=== PATIENT | male | born 1940 | race African-American/Black ===

== ENCOUNTER 2018-10-15 00:11 | Inpatient (IN) | payer OTHER, MEDICAID ==
[~2018-10-15] VITALS: Ht 167.6 cm; Wt 106.8 kg
[2018-10-15] VITALS (8 sets, daily range): BP systolic 108–148; BP diastolic 53–85
[2018-10-15] MEDS: BUDESONIDE 0.5MG/2ML NEB HHN SCH
[2018-10-15] MEDS: IPRATROPIUM/ALBUTEROL 0.5-3(2.5)MG/3ML NEB HHN SCH
[~2018-10-15 00:11] MED LIST: ALLO100T PO; BACL-141 PO; GLIP5TAB12 PO; HYDR12.529 PO; IBUP-2271 MT; SIMV5TAB58 PO
[2018-10-15] MEDS ORDERED: ALBUTEROL (0.083%) 2.5MG/3ML NEB HHN STA (00:47)
[2018-10-15] MEDS ORDERED: METHYLPREDNISOLONE SOD SUCC 125 MG/2 ML VIAL IV STA (00:47)
[2018-10-15] MEDS ORDERED: IPRATROPIUM BROMIDE (0.02%) 0.5MG/2.5ML NEB HHN STA (00:47)
[2018-10-15] MEDS ORDERED: DILTIAZEM HCL 5MG/ML 5ML VIAL IV ONE (01:00)
[2018-10-15 01:24] LABS: BASOPHILS % 0.7 % (0.0-2.0); HEMATOCRIT. 42.8 % (42.0-52.0); HEMOGLOBIN. 14.1 g/dL (14.0-18.0); LYMPHOCYTES % 7.6 % (20.0-50.0); MEAN CORPUSCULAR HEMOGLOBIN 29.5 pg (28.0-32.0); MEAN CORPUSCULAR VOLUME 89.7 fL (80.0-94.0); MEAN PLATELET VOLUME 10.8 fl (7.4-10.4); MONOCYTES % 7.7 % (2.0-8.0); PLATELET 210 x1000/uL (130-400); RED BLOOD CELL COUNT 4.77 mill/uL (4.7-6.1); RED CELL DISTRIBUTION WIDTH 15.6 % (11.6-14.6)
[2018-10-15 01:25] LABS: CHLORIDE 111 mEq/L (98-107)
[2018-10-15] MEDS ORDERED: ASPIRIN 81MG TABLET PO ONE (02:00)
[2018-10-15] MEDS ORDERED: DEXTROSE 50% WATER 50ML SYRINGE IV PRN (05:15)
[2018-10-15 07:38] LABS: CREATINE KINASE MB FRACTION 5.3 ng/mL (0.5-3.6)
[2018-10-15] MEDS: BLOOD SUGAR DIAGNOSTIC STRIP TEST SCH ×4 (08:28→21:00)
[2018-10-15] MEDS ORDERED: POTASSIUM CHLORIDE 20MEQ TABLET SR PO SCH ×2 (08:30→14:15)
[2018-10-15] MEDS ORDERED: LACTULOSE 20G/30ML UDC PO SCH (08:30)
[2018-10-15] MEDS: GLIPIZIDE 5MG TABLET PO SCH (08:33)
[2018-10-15] MEDS: INSULIN LISPRO 100 UNITS/ML SUBCUT SCH ×4 (08:47→21:00)
[2018-10-15] MEDS ORDERED: ENOXAPARIN 30MG/0.3ML SYR SUBCUT SCH (09:00)
[2018-10-15] MEDS ORDERED: HYDROCHLOROTHIAZIDE 12.5MG CAPSULE PO SCH (09:00)
[2018-10-15] MEDS: ALLOPURINOL 100 MG TABLET PO SCH (09:01)
[2018-10-15] MEDS: DILTIAZEM HCL 30MG TABLET PO SCH ×3 (11:34→23:41)
[2018-10-15 14:33] LABS: BG BASE EXCESS -3.1 mmol/L (-2.0-2.0); BG CARBOXYHEMOGLOBIN 0.5 % (0.5-1.5); BG HCO3 ACT 20.1 mmol/L (22.0-26.0); BG METHEMOGLOBIN 0.3 % (0.0-1.5); BG OXYHEMOGLOBIN 96.2 % (94.0-97.0); BG PCO2 31.1 mmHg (35.0-45.0); BG PH 7.428 (7.350-7.450); BG SAMPLE SITE RIGHT RADIAL; BG TOTAL HEMOGLOBIN 14.9 g/dL (12.0-18.0); BG VENT MODE ROOM AIR
[2018-10-15] MEDS: METHYLPREDNISOLONE SOD SUCC 40 MG/ML VIAL IV SCH ×2 (15:04→22:14)
[2018-10-15] MEDS: AZITHROMYCIN 500 MG TABLET PO SCH (15:04)
[2018-10-15] MEDS: FUROSEMIDE 40MG/4ML VIAL IVP SCH (15:04)
[2018-10-15] MEDS: CEFTRIAXONE 1 G PREMIX 50 ML IV SCH (16:31)
[2018-10-15] MEDS: APIXABAN 5 MG TABLET PO SCH (16:31)
[2018-10-15 17:20] LABS: CREATINE KINASE MB FRACTION 4.6 ng/mL (0.5-3.6)
[2018-10-15 17:34] LABS: CLARITY URINE CLEAR (CLEAR); COLOR URINE YELLOW (YELLOW); KETONES URINE NEGATIVE (NEGATIVE); LEUKOCYTE ESTERASE URINE NEGATIVE (NEGATIVE); NITRITE URINE NEGATIVE (NEGATIVE); OCCULT BLOOD URINE NEGATIVE (NEGATIVE); PH URINE 5.5 (4.5-8.0); PROTEIN URINE 2+ (NEGATIVE); SPECIFIC GRAVITY URINE 1.013 (1.005-1.030); UROBILINOGEN URINE 0.2 E.U./dL (0.2-1.0)
[2018-10-15 17:48] LABS: OPIATES URINE SCREEN NEGATIVE (NEGATIVE); PHENCYCLIDINE URINE SCREEN NEGATIVE (NEGATIVE)
[2018-10-15 17:49] LABS: *AMPHETAMINES SCREEN URINE NEGATIVE (NEGATIVE); *BARBITURATES SCREEN URINE NEGATIVE (NEGATIVE); *BENZODIAZEPINES SCREEN URINE NEGATIVE (NEGATIVE); *COCAINE SCREEN URINE NEGATIVE (NEGATIVE); CANNABINOID URINE SCREEN NEGATIVE (NEGATIVE); METHADONE URINE SCREEN NEGATIVE (NEGATIVE)
[2018-10-15] MEDS ORDERED: REGADENOSON 0.4 MG/5 ML IV NR (18:00)
[2018-10-15] MEDS ORDERED: ATORVASTATIN CALCIUM 10MG TABLET PO SCH (21:00)
[2018-10-15 21:17] LABS: INR 1.2; PROTHROMBIN TIME 12.1 sec (9.6-11.0)
[2018-10-15] MEDS: ATORVASTATIN CALCIUM 40MG TABLET PO SCH (22:06)
[2018-10-15] MEDS: SACUBITRIL/VALSARTAN 24/26 TAB PO SCH (22:08)
[2018-10-15] MEDS: GUAIFENESIN 600MG ER TABLET PO SCH (22:15)
[2018-10-16] VITALS (7 sets, daily range): BP systolic 99–136; BP diastolic 58–90
[2018-10-16 00:37] LABS: CREATINE KINASE MB FRACTION 4.4 ng/mL (0.5-3.6)
[2018-10-16] MEDS: IPRATROPIUM/ALBUTEROL 0.5-3(2.5)MG/3ML NEB HHN SCH ×4 (04:45→20:50)
[2018-10-16] MEDS: DILTIAZEM HCL 30MG TABLET PO SCH ×3 (06:07→17:41)
[2018-10-16] MEDS: BLOOD SUGAR DIAGNOSTIC STRIP TEST SCH ×4 (06:08→21:00)
[2018-10-16] MEDS: GLIPIZIDE 5MG TABLET PO SCH (06:08)
[2018-10-16 06:22] LABS: HEMATOCRIT 42.4 % (42.0-52.0); HEMOGLOBIN 14.4 g/dL (14.0-18.0); MEAN CORPUSCULAR HEMOGLOBIN 30.2 pg (28.0-32.0); MEAN CORPUSCULAR VOLUME 89.3 fL (80.0-94.0); PLATELET 216 x1000/uL (130-400); RED BLOOD CELL COUNT 4.75 mill/uL (4.7-6.1); RED CELL DISTRIBUTION WIDTH 15.6 % (11.6-14.6)
[2018-10-16] MEDS: INSULIN LISPRO 100 UNITS/ML SUBCUT SCH ×4 (06:25→21:47)
[2018-10-16] MEDS: BUDESONIDE 0.5MG/2ML NEB HHN SCH ×2 (07:50→20:50)
[2018-10-16] MEDS ORDERED: LACTULOSE 20G/30ML UDC PO PRN (08:30)
[2018-10-16] MEDS: SACUBITRIL/VALSARTAN 24/26 TAB PO SCH ×2 (09:09→21:28)
[2018-10-16] MEDS: GUAIFENESIN 600MG ER TABLET PO SCH ×2 (09:09→21:28)
[2018-10-16] MEDS: APIXABAN 5 MG TABLET PO SCH ×3 (09:09→13:45)
[2018-10-16] MEDS: AZITHROMYCIN 500 MG TABLET PO SCH (09:09)
[2018-10-16] MEDS: ALLOPURINOL 100 MG TABLET PO SCH (09:09)
[2018-10-16] MEDS: FUROSEMIDE 40MG/4ML VIAL IVP SCH (09:09)
[2018-10-16] MEDS: METHYLPREDNISOLONE SOD SUCC 40 MG/ML VIAL IV SCH ×2 (09:09→21:28)
[2018-10-16] MEDS: CEFTRIAXONE 1 G PREMIX 50 ML IV SCH (10:46)
[2018-10-16] MEDS: ATORVASTATIN CALCIUM 40MG TABLET PO SCH (21:28)
[2018-10-16] MEDS ORDERED: ALPRAZOLAM 0.25 MG TABLET PO NR (22:30)
[2018-10-17] VITALS (12 sets, daily range): BP systolic 96–139; BP diastolic 47–90
[2018-10-17] MEDS: DEXT 5%/0.45% NACL 1000ML 1,000 ML IV SCH (00:50)
[2018-10-17] MEDS: IPRATROPIUM/ALBUTEROL 0.5-3(2.5)MG/3ML NEB HHN SCH ×5 (02:31→23:53)
[2018-10-17] MEDS: DILTIAZEM HCL 30MG TABLET PO SCH ×4 (05:03→17:32)
[2018-10-17] MEDS: GLIPIZIDE 5MG TABLET PO SCH (06:13)
[2018-10-17] MEDS: INSULIN LISPRO 100 UNITS/ML SUBCUT SCH ×4 (06:13→20:57)
[2018-10-17] MEDS: BLOOD SUGAR DIAGNOSTIC STRIP TEST SCH ×4 (06:13→20:41)
[2018-10-17 07:34] LABS: HEMATOCRIT. 42.6 % (42.0-52.0); HEMOGLOBIN. 13.9 g/dL (14.0-18.0); MEAN CORPUSCULAR HEMOGLOBIN 29.7 pg (28.0-32.0); MEAN PLATELET VOLUME 11.4 fl (7.4-10.4); PLATELET 191 x1000/uL (130-400); RED BLOOD CELL COUNT 4.68 mill/uL (4.7-6.1)
[2018-10-17] MEDS: CEFTRIAXONE 1 G PREMIX 50 ML IV SCH (08:10)
[2018-10-17] MEDS: FUROSEMIDE 40MG/4ML VIAL IVP SCH (08:11)
[2018-10-17] MEDS: METHYLPREDNISOLONE SOD SUCC 40 MG/ML VIAL IV SCH ×2 (08:11→20:57)
[2018-10-17] MEDS: BUDESONIDE 0.5MG/2ML NEB HHN SCH ×2 (08:24→20:52)
[2018-10-17 08:49] LABS: CHLORIDE 108 mEq/L (98-107)
[2018-10-17] MEDS: AZITHROMYCIN 500 MG TABLET PO SCH (09:00)
[2018-10-17] MEDS: GUAIFENESIN 600MG ER TABLET PO SCH ×2 (09:00→20:57)
[2018-10-17] MEDS: SACUBITRIL/VALSARTAN 24/26 TAB PO SCH ×2 (09:00→20:57)
[2018-10-17] MEDS: ALLOPURINOL 100 MG TABLET PO SCH (09:00)
[2018-10-17 09:04] LABS: PHOSPHORUS 3.1 mg/dL (2.5-4.9)
[2018-10-17] MEDS ORDERED: REGADENOSON 0.4 MG/5 ML IV ONE (09:46)
[2018-10-17 12:48] LABS: PLATELET ESTIMATE NORMAL
[2018-10-17] MEDS ORDERED: NICARDIPINE 100MCG/ML 10ML VIAL (CATH LAB) IV ONE (13:03)
[2018-10-17] MEDS ORDERED: HEPARIN SODIUM 1,000 UNIT/1ML VIAL IV ONE (13:03)
[2018-10-17] MEDS ORDERED: NITROGLYCERIN 50MCG/ML 10ML VIAL (CATH LAB) IV ONE (13:03)
[2018-10-17] MEDS ORDERED: IODIXANOL 320MG/ML 100 ML BOTTLE IV ONE (13:16)
[2018-10-17] MEDS ORDERED: LIDOCAINE HCL 1% 20ML VIAL (Pyxis) INJ ONE (13:16)
[2018-10-17] MEDS ORDERED: ASPIRIN/SOD BICARB/CITRIC ACID 324MG TAB EFF ONE (13:40)
[2018-10-17] MEDS ORDERED: FENTANYL CITRATE/PF 50MCG/ML 2ML VIAL ONE (13:56)
[2018-10-17] MEDS ORDERED: MIDAZOLAM HCL 2 MG/2 ML VIAL ONE (13:56)
[2018-10-17] MEDS ORDERED: ACETAMINOPHEN 325MG TABLET PO PRN (14:30)
[2018-10-17] MEDS ORDERED: SODIUM CHLORIDE 0.45% 500 ML IV ONE (14:30)
[2018-10-17] MEDS ORDERED: ONDANSETRON HCL 4MG/2ML INJ IV PRN (14:30)
[2018-10-17] MEDS ORDERED: ATROPINE SULFATE 1MG/10ML SYR IV PRN (14:30)
[2018-10-17] MEDS ORDERED: ENOXAPARIN 80MG/0.8ML SYR SUBCUT NR (20:00)
[2018-10-17] MEDS: ATORVASTATIN CALCIUM 40MG TABLET PO SCH (20:57)
[2018-10-17] MEDS: LEVOFLOXACIN 500MG PREMIX 100 ML IV SCH (21:18)
[2018-10-18] VITALS (18 sets, daily range): BP systolic 102–139; BP diastolic 41–95
[2018-10-18] MEDS: DILTIAZEM HCL 30MG TABLET PO SCH ×4 (00:10→18:06)
[2018-10-18] MEDS: DEXT 5%/0.45% NACL 1000ML 1,000 ML IV SCH (00:11)
[2018-10-18] MEDS: IPRATROPIUM/ALBUTEROL 0.5-3(2.5)MG/3ML NEB HHN SCH ×4 (01:20→20:54)
[2018-10-18] MEDS: BLOOD SUGAR DIAGNOSTIC STRIP TEST SCH ×4 (06:20→20:31)
[2018-10-18] MEDS: GLIPIZIDE 5MG TABLET PO SCH (06:27)
[2018-10-18 06:53] LABS: HEMATOCRIT. 43.6 % (42.0-52.0); HEMOGLOBIN. 14.7 g/dL (14.0-18.0); MEAN CORPUSCULAR HEMOGLOBIN 30.3 pg (28.0-32.0); MEAN CORPUSCULAR VOLUME 89.9 fL (80.0-94.0); MEAN PLATELET VOLUME 11.8 fl (7.4-10.4); PLATELET 153 x1000/uL (130-400); RED BLOOD CELL COUNT 4.85 mill/uL (4.7-6.1)
[2018-10-18] MEDS: ALLOPURINOL 100 MG TABLET PO SCH (08:55)
[2018-10-18] MEDS: FUROSEMIDE 40MG/4ML VIAL IVP SCH (08:55)
[2018-10-18] MEDS: METHYLPREDNISOLONE SOD SUCC 40 MG/ML VIAL IV SCH ×2 (08:55→20:59)
[2018-10-18] MEDS: INSULIN LISPRO 100 UNITS/ML SUBCUT SCH ×4 (08:55→21:00)
[2018-10-18] MEDS: CEFTRIAXONE 1 G PREMIX 50 ML IV SCH (08:56)
[2018-10-18] MEDS: AZITHROMYCIN 500 MG TABLET PO SCH (08:56)
[2018-10-18] MEDS: GUAIFENESIN 600MG ER TABLET PO SCH ×2 (08:56→20:59)
[2018-10-18] MEDS: SACUBITRIL/VALSARTAN 24/26 TAB PO SCH ×2 (08:59→20:59)
[2018-10-18] MEDS ORDERED: ENOXAPARIN 30MG/0.3ML SYR SUBCUT SCH (09:00)
[2018-10-18] MEDS ORDERED: GUAIFENESIN 200MG/10ML SUGAR FREE UDC PO PRN (13:30)
[2018-10-18 13:56] LABS: PLATELET ESTIMATE NORMAL
[2018-10-18] MEDS: BUDESONIDE 0.5MG/2ML NEB HHN SCH (14:11)
[2018-10-18] MEDS ORDERED: BACL-141 MT (16:47)
[2018-10-18] MEDS ORDERED: AMLO10TA80 MT (16:50)
[2018-10-18] MEDS ORDERED: ENAL5TAB MT (16:50)
[2018-10-18] MEDS ORDERED: FURO40TA5 MT (16:50)
[2018-10-18] MEDS ORDERED: HYDR-4133 MT (16:50)
[2018-10-18] MEDS ORDERED: ATOR40TA70 MT (16:50)
[2018-10-18] MEDS: ENOXAPARIN 100MG/ML SYR SUBCUT SCH (18:37)
[2018-10-18] MEDS: LEVOFLOXACIN 500MG PREMIX 100 ML IV SCH (20:59)
[2018-10-18] MEDS: ATORVASTATIN CALCIUM 40MG TABLET PO SCH (20:59)
[2018-10-19] VITALS (17 sets, daily range): BP systolic 101–152; BP diastolic 51–91
[2018-10-19] MEDS: DEXT 5%/0.45% NACL 1000ML 1,000 ML IV SCH (00:22)
[2018-10-19] MEDS: DILTIAZEM HCL 30MG TABLET PO SCH ×4 (00:22→17:57)
[2018-10-19] MEDS: IPRATROPIUM/ALBUTEROL 0.5-3(2.5)MG/3ML NEB HHN SCH ×4 (02:13→20:26)
[2018-10-19] MEDS: BLOOD SUGAR DIAGNOSTIC STRIP TEST SCH ×4 (06:09→21:39)
[2018-10-19] MEDS: ENOXAPARIN 100MG/ML SYR SUBCUT SCH (06:09)
[2018-10-19] MEDS: GLIPIZIDE 5MG TABLET PO SCH (06:10)
[2018-10-19 07:11] LABS: HEMOGLOBIN. 15.1 g/dL (14.0-18.0); MEAN CORPUSCULAR HEMOGLOBIN 29.6 pg (28.0-32.0); MEAN CORPUSCULAR VOLUME 90.4 fL (80.0-94.0); MEAN PLATELET VOLUME 11.4 fl (7.4-10.4); PLATELET 165 x1000/uL (130-400); RED BLOOD CELL COUNT 5.09 mill/uL (4.7-6.1); RED CELL DISTRIBUTION WIDTH 15.8 % (11.6-14.6)
[2018-10-19 07:36] LABS: CHLORIDE 106 mEq/L (98-107)
[2018-10-19] MEDS: AZITHROMYCIN 500 MG TABLET PO SCH (07:57)
[2018-10-19] MEDS: INSULIN LISPRO 100 UNITS/ML SUBCUT SCH ×4 (07:57→21:21)
[2018-10-19] MEDS: GUAIFENESIN 600MG ER TABLET PO SCH ×2 (07:57→21:20)
[2018-10-19] MEDS: FUROSEMIDE 40MG/4ML VIAL IVP SCH (07:57)
[2018-10-19] MEDS: ALLOPURINOL 100 MG TABLET PO SCH (07:57)
[2018-10-19] MEDS: METHYLPREDNISOLONE SOD SUCC 40 MG/ML VIAL IV SCH ×2 (07:57→21:21)
[2018-10-19] MEDS: SACUBITRIL/VALSARTAN 24/26 TAB PO SCH ×2 (07:59→21:19)
[2018-10-19] MEDS: BUDESONIDE 0.5MG/2ML NEB HHN SCH (09:12)
[2018-10-19] MEDS: CEFTRIAXONE 1 G PREMIX 50 ML IV SCH (09:30)
[2018-10-19 11:21] LABS: CLARITY URINE CLEAR (CLEAR); COLOR URINE YELLOW (YELLOW); KETONES URINE NEGATIVE (NEGATIVE); LEUKOCYTE ESTERASE URINE NEGATIVE (NEGATIVE); NITRITE URINE NEGATIVE (NEGATIVE); OCCULT BLOOD URINE NEGATIVE (NEGATIVE); PROTEIN URINE NEGATIVE (NEGATIVE); SPECIFIC GRAVITY URINE 1.011 (1.005-1.030); UROBILINOGEN URINE 0.2 E.U./dL (0.2-1.0)
[2018-10-19 12:18] LABS: PLATELET ESTIMATE NORMAL
[2018-10-19] MEDS ORDERED: HEPARIN 25,000 UNITS PREMIX 500 ML IV SCH (13:45)
[2018-10-19] MEDS ORDERED: ACETAMINOPHEN 325MG TABLET PO PRN (13:45)
[2018-10-19] MEDS ORDERED: NITROGLYCERIN 0.4MG TABLET SL SL PRN (13:45)
[2018-10-19] MEDS ORDERED: ALPRAZOLAM 0.25 MG TABLET PO PRN (13:45)
[2018-10-19] MEDS: SODIUM CHLORIDE 0.9% INJ 3ML FLUSH IVF SCH ×2 (14:00→21:23)
[2018-10-19] MEDS ORDERED: HEPARIN BOLUS PRN aPTT <30 IV (18:00)
[2018-10-19] MEDS ORDERED: HEPARIN BOLUS PRN aPTT 30-44 IV (18:00)
[2018-10-19] MEDS: HEPARIN 25,000 UNITS PREMIX 500 ML IV SCH ×2 (18:00→19:29)
[2018-10-19] MEDS ORDERED: ASCORBIC ACID 500 MG TABLET PO SCH (21:00)
[2018-10-19] MEDS ORDERED: CHLORHEXIDINE GLUCONATE 4% EXTERNAL USE TOP SCH (21:00)
[2018-10-19] MEDS ORDERED: BISACODYL 10MG SUPP PR PRN (21:00)
[2018-10-19] MEDS ORDERED: DOCUSATE SODIUM 100MG CAPSULE PO SCH (21:00)
[2018-10-19] MEDS: ALLOPURINOL 300 MG TABLET PO SCH (21:19)
[2018-10-19] MEDS: LEVOFLOXACIN 500MG PREMIX 100 ML IV SCH (21:21)
[2018-10-19] MEDS: ATORVASTATIN CALCIUM 40MG TABLET PO SCH (21:22)
[2018-10-20] VITALS (28 sets, daily range): BP systolic 75–164; BP diastolic 28–181
[2018-10-20] MEDS: DEXT 5%/0.45% NACL 1000ML 1,000 ML IV SCH ×2 (00:24→17:00)
[2018-10-20] MEDS: DILTIAZEM HCL 30MG TABLET PO SCH ×3 (00:24→17:00)
[2018-10-20] MEDS: IPRATROPIUM/ALBUTEROL 0.5-3(2.5)MG/3ML NEB HHN SCH (01:59)
[2018-10-20] MEDS ORDERED: BLOOD SUGAR DIAGNOSTIC STRIP TEST NR (04:00)
[2018-10-20] MEDS: CHLORHEXIDINE GLUCONATE 4% EXTERNAL USE TOP SCH ×2 (04:58→17:00)
[2018-10-20 04:59] LABS: HEMOGLOBIN. 15.6 g/dL (14.0-18.0); MEAN CORPUSCULAR HEMOGLOBIN 29.8 pg (28.0-32.0); MEAN CORPUSCULAR VOLUME 90.1 fL (80.0-94.0); MEAN PLATELET VOLUME 11.4 fl (7.4-10.4); PLATELET 178 x1000/uL (130-400); RED BLOOD CELL COUNT 5.22 mill/uL (4.7-6.1); RED CELL DISTRIBUTION WIDTH 15.8 % (11.6-14.6)
[2018-10-20] MEDS ORDERED: CEFAZOLIN 2,000 MG in DEXT 5% WATER 100 ML IV SCH (05:00)
[2018-10-20 05:07] LABS: CHLORIDE 106 mEq/L (98-107)
[2018-10-20 05:12] LABS: INR 1.2; PROTHROMBIN TIME 12.7 sec (9.6-11.0)
[2018-10-20] MEDS: ALLOPURINOL 300 MG TABLET PO SCH (05:24)
[2018-10-20] MEDS ORDERED: METHYLENE BLUE 50 MG/10 ML AMP IV ONE (05:50)
[2018-10-20] MEDS ORDERED: BACITRACIN 15GM TUBE TOP ONE (05:50)
[2018-10-20] MEDS ORDERED: NORMAL SALINE 0.9% 10 ML SYR ONE (05:50)
[2018-10-20] MEDS ORDERED: THROMBIN (BOVINE) 5000 UNITS/VIAL TOP ONE ×2 (05:50→05:51)
[2018-10-20] MEDS ORDERED: BACITRACIN 50,000 UNITS/VIAL ONE (05:51)
[2018-10-20] MEDS ORDERED: HEPARIN 1000 UNITS/ML 10ML ONE ×2 (05:53→07:23)
[2018-10-20] MEDS ORDERED: INSULIN REGULAR (DRIP) 100 UNITS in SODIUM CHLORIDE 0.9% 99 ML IV PRN (06:00)
[2018-10-20] MEDS ORDERED: NOREPINEPHRINE 4 MG in DEXT 5% WATER 246 ML IV PRN (06:00)
[2018-10-20] MEDS ORDERED: DEL NIDO ELECTROLYTE-S(PH 7.4) 1,000 ML IV PRN ×2 (06:00)
[2018-10-20] MEDS ORDERED: DOBUTAMINE HCL 250 MG in DEXT 5% WATER 230 ML IV PRN (06:00)
[2018-10-20] MEDS ORDERED: PAPAVERINE HCL 180MG in SODIUM CHLORIDE 0.9% 24ML IV PRN (06:00)
[2018-10-20] MEDS ORDERED: AMINOCAPROIC ACID 10,000 MG in SODIUM CHLORIDE 0.9% 460 ML IV PRN (06:00)
[2018-10-20] MEDS ORDERED: NICARDIPINE 40MG/200ML PREMIX 200 ML IV PRN (06:00)
[2018-10-20] MEDS ORDERED: CEFAZOLIN 2,000 MG in DEXT 5% WATER 100 ML IV PRN (06:00)
[2018-10-20] MEDS ORDERED: EPINEPHRINE 4 MG in DEXT 5% WATER 246 ML IV PRN (06:00)
[2018-10-20] MEDS ORDERED: NITROGLYCERIN 50MG PREMIX 250 ML IV ONE (06:27)
[2018-10-20] MEDS ORDERED: MILRINONE 20MG-DEXT 5% PREMIX 100 ML IV ONE (06:27)
[2018-10-20] MEDS ORDERED: MIDAZOLAM HCL 2 MG/2 ML VIAL ONE (06:36)
[2018-10-20] MEDS ORDERED: FENTANYL CITRATE/PF 50MCG/ML 5ML VIAL ONE (06:36)
[2018-10-20] MEDS ORDERED: PROPOFOL 10MG/ML 100ML 100 ML IV ONE ×2 (06:37→12:30)
[2018-10-20] MEDS ORDERED: CEFAZOLIN SODIUM 1000MG/VIAL ONE (06:45)
[2018-10-20] MEDS ORDERED: PHENYLEPHRINE HCL 10 MG/ML 1ML (IV VIAL) IV ONE ×2 (06:45→07:22)
[2018-10-20] MEDS ORDERED: STERILE WATER FOR INJECTION 10ML VIAL ONE (06:48)
[2018-10-20] MEDS ORDERED: ETOMIDATE 2MG/ML 10ML VIAL IV ONE (07:07)
[2018-10-20] MEDS ORDERED: AMINOCAPROIC ACID 250 MG/ML 20ML VIAL ONE (07:21)
[2018-10-20] MEDS ORDERED: MAGNESIUM SULFATE 5GM/10ML VIAL IV ONE ×2 (07:21→12:45)
[2018-10-20] MEDS ORDERED: POTASSIUM CHLORIDE 40MEQ/20ML INJ IV ONE (07:21)
[2018-10-20] MEDS ORDERED: ALBUMIN HUMAN 25GM/100ML (25%) IV ONE (07:21)
[2018-10-20] MEDS ORDERED: MANNITOL 20% 500 ML IV ONE (07:22)
[2018-10-20] MEDS ORDERED: SODIUM BICARBONATE 8.4% 1 MEQ/ML 50ML SYR IV ONE ×2 (07:22→07:23)
[2018-10-20] MEDS ORDERED: LIDOCAINE HCL 2% 5ML SYRINGE IV ONE ×2 (07:22→12:50)
[2018-10-20] MEDS ORDERED: CALCIUM CHLORIDE 1GM/10ML SYR IV ONE (07:22)
[2018-10-20] MEDS ORDERED: HEPARIN 10,000 UNITS/ML VIAL ONE (07:23)
[2018-10-20] MEDS ORDERED: LABETALOL HCL 5MG/ML VIAL 20ML IV ONE (07:57)
[2018-10-20] MEDS ORDERED: ROCURONIUM BROMIDE 10MG/ML VIAL 5ML IV ONE (09:31)
[2018-10-20] MEDS ORDERED: AMIODARONE HCL 50MG/ML 3ML VIAL IV ONE (14:14)
[2018-10-20 14:37] LABS: MEAN PLATELET VOLUME 10.7 fl (7.4-10.4); PLATELET 93 x1000/uL (130-400); RED CELL DISTRIBUTION WIDTH 15.7 % (11.6-14.6)
[2018-10-20 14:39] LABS: CHLORIDE 116 mEq/L (98-107)
[2018-10-20 14:46] LABS: PHOSPHORUS 2.4 mg/dL (2.5-4.9)
[2018-10-20 14:49] LABS: HEMOGLOBIN. 6.9 g/dL (14.0-18.0)
[2018-10-20 14:50] LABS: HEMATOCRIT. 20.9 % (42.0-52.0)
[2018-10-20] MEDS ORDERED: FUROSEMIDE 20MG/2ML VIAL ONE (14:54)
[2018-10-20] MEDS ORDERED: SODIUM CHLORIDE 0.9% 500 ML IV PRN (15:01)
[2018-10-20] MEDS ORDERED: NITROGLYCERIN 50MG PREMIX 250 ML IV SCH (15:01)
[2018-10-20] MEDS ORDERED: OXYCODONE HCL/ACETAMINOPHEN 5/325MG TABLET PO PRN (15:15)
[2018-10-20] MEDS ORDERED: CALCIUM CHLORIDE 3,000 MG in DEXT 5% WATER 250 ML IV PRN (15:15)
[2018-10-20] MEDS ORDERED: ALBUMIN HUMAN 12.5G/250ML (5%) IV PRN (15:15)
[2018-10-20] MEDS ORDERED: ACETAMINOPHEN 325MG TABLET PO PRN (15:15)
[2018-10-20] MEDS ORDERED: MAGNESIUM 1 G PREMIX 100 ML IV PRN (15:15)
[2018-10-20] MEDS ORDERED: ONDANSETRON HCL 4MG/2ML INJ IV PRN (15:15)
[2018-10-20 15:18] LABS: PLATELET ESTIMATE DECREASED
[2018-10-20 16:07] LABS: INR 1.9; PROTHROMBIN TIME 18.8 sec (9.6-11.0)
[2018-10-20 16:21] LABS: BG BASE EXCESS -1.5 mmol/L (-2.0-2.0); BG CARBOXYHEMOGLOBIN 0.2 % (0.5-1.5); BG DEOXYHEMOGLOBIN 1.4 % (0.0-5.0); BG FRACTION INSPIRED OXYGEN 100; BG HCO3 ACT 23.1 mmol/L (22.0-26.0); BG METHEMOGLOBIN 0.4 % (0.0-1.5); BG OXYGEN SATURATION 98.6 % (92.0-98.5); BG PCO2 38.3 mmHg (35.0-45.0); BG PH 7.398 (7.350-7.450); BG PO2 184.6 mmHg (75.0-100.0); BG SAMPLE SITE A-LINE; BG TIDAL VOLUME(mL) 480 mL; BG TOTAL HEMOGLOBIN 9.1 g/dL (12.0-18.0); BG VENT MODE VENT - A/C; BG VENT RATE 18 set
[2018-10-20 16:34] LABS: HEMOGLOBIN. 8.6 g/dL (14.0-18.0); MEAN CORPUSCULAR HEMOGLOBIN 29.5 pg (28.0-32.0); MEAN CORPUSCULAR VOLUME 89.6 fL (80.0-94.0); PLATELET 89 x1000/uL (130-400); RED CELL DISTRIBUTION WIDTH 15.6 % (11.6-14.6)
[2018-10-20] MEDS: ALLOPURINOL 100 MG TABLET PO SCH (17:00)
[2018-10-20] MEDS: GUAIFENESIN 600MG ER TABLET PO SCH ×2 (17:00→21:00)
[2018-10-20] MEDS: AZITHROMYCIN 500 MG TABLET PO SCH (17:00)
[2018-10-20] MEDS: GLIPIZIDE 5MG TABLET PO SCH (17:00)
[2018-10-20] MEDS: METHYLPREDNISOLONE SOD SUCC 40 MG/ML VIAL IV SCH ×2 (17:00→22:02)
[2018-10-20] MEDS: SACUBITRIL/VALSARTAN 24/26 TAB PO SCH ×2 (17:00→21:00)
[2018-10-20 17:09] LABS: PLATELET ESTIMATE NORMAL
[2018-10-20 17:15] LABS: PARTIAL THROMBOPLASTIN TIME 121.3 sec (23.4-31.0)
[2018-10-20 17:31] LABS: BG BASE EXCESS -1.6 mmol/L (-2.0-2.0); BG CARBOXYHEMOGLOBIN 0.3 % (0.5-1.5); BG DEOXYHEMOGLOBIN 3.2 % (0.0-5.0); BG FRACTION INSPIRED OXYGEN 70; BG HCO3 ACT 22.9 mmol/L (22.0-26.0); BG METHEMOGLOBIN 0.3 % (0.0-1.5); BG OXYGEN SATURATION 96.8 % (92.0-98.5); BG OXYHEMOGLOBIN 96.2 % (94.0-97.0); BG PCO2 37.7 mmHg (35.0-45.0); BG PH 7.402 (7.350-7.450); BG PO2 99.4 mmHg (75.0-100.0); BG SAMPLE SITE A-LINE; BG TIDAL VOLUME(mL) 480 mL; BG TOTAL HEMOGLOBIN 9.8 g/dL (12.0-18.0); BG VENT MODE VENT - A/C; BG VENT RATE 18 set
[2018-10-20 17:38] LABS: PLATELET ESTIMATE DECREASED
[2018-10-20] MEDS ORDERED: KCL 10MEQ/50ML PREMIX 200 ML IV PRN (17:45)
[2018-10-20 17:49] LABS: HEMATOCRIT 26.8 % (42.0-52.0); HEMOGLOBIN 9.1 g/dL (14.0-18.0)
[2018-10-20] MEDS: NOREPINEPHRINE 4 MG in DEXT 5% WATER 250 ML IV SCH (18:52)
[2018-10-20] MEDS: MILRINONE 20MG-DEXT 5% PREMIX 100 ML IV SCH ×2 (18:53→22:02)
[2018-10-20] MEDS: KCL 10MEQ/50ML PREMIX 100 ML IV PRN (18:56)
[2018-10-20 18:57] LABS: BG BASE EXCESS -2.5 mmol/L (-2.0-2.0); BG CARBOXYHEMOGLOBIN 0.3 % (0.5-1.5); BG DEOXYHEMOGLOBIN 3.2 % (0.0-5.0); BG FRACTION INSPIRED OXYGEN 60; BG HCO3 ACT 21.5 mmol/L (22.0-26.0); BG METHEMOGLOBIN 0.6 % (0.0-1.5); BG OXYGEN SATURATION 96.8 % (92.0-98.5); BG OXYHEMOGLOBIN 95.9 % (94.0-97.0); BG PCO2 34.3 mmHg (35.0-45.0); BG PH 7.416 (7.350-7.450); BG PO2 102.7 mmHg (75.0-100.0); BG SAMPLE SITE A-LINE; BG TIDAL VOLUME(mL) 480 mL; BG TOTAL HEMOGLOBIN 9.7 g/dL (12.0-18.0); BG VENT MODE VENT - A/C; BG VENT RATE 18 set
[2018-10-20 19:57] LABS: BG BASE EXCESS -1.9 mmol/L (-2.0-2.0); BG CARBOXYHEMOGLOBIN 0.1 % (0.5-1.5); BG DEOXYHEMOGLOBIN 2.5 % (0.0-5.0); BG FRACTION INSPIRED OXYGEN 50; BG HCO3 ACT 22.2 mmol/L (22.0-26.0); BG METHEMOGLOBIN 0.4 % (0.0-1.5); BG OXYGEN SATURATION 97.5 % (92.0-98.5); BG PCO2 35.3 mmHg (35.0-45.0); BG PH 7.417 (7.350-7.450); BG PO2 111.4 mmHg (75.0-100.0); BG SAMPLE SITE A-LINE; BG TIDAL VOLUME(mL) 480 mL; BG VENT MODE VENT - A/C; BG VENT RATE 18 set
[2018-10-20] MEDS: MAGNESIUM HYDROXIDE 400MG/5ML 30ML UDC PO SCH (20:00)
[2018-10-20] MEDS ORDERED: IPRATROPIUM/ALBUTEROL 0.5-3(2.5)MG/3ML NEB HHN SCH (20:00)
[2018-10-20] MEDS ORDERED: CEFAZOLIN 1000MG PREMIX 50 ML IV SCH (20:00)
[2018-10-20 20:54] LABS: INR 1.6; PROTHROMBIN TIME 15.9 sec (9.6-11.0)
[2018-10-20] MEDS: ATORVASTATIN CALCIUM 40MG TABLET PO SCH (21:00)
[2018-10-20 21:20] LABS: BG CARBOXYHEMOGLOBIN 0.3 % (0.5-1.5); BG DEOXYHEMOGLOBIN 5.2 % (0.0-5.0); BG FRACTION INSPIRED OXYGEN 40; BG HCO3 ACT 21.6 mmol/L (22.0-26.0); BG METHEMOGLOBIN 0.6 % (0.0-1.5); BG OXYGEN SATURATION 94.8 % (92.0-98.5); BG OXYHEMOGLOBIN 93.9 % (94.0-97.0); BG PCO2 36.9 mmHg (35.0-45.0); BG PH 7.386 (7.350-7.450); BG PO2 83.9 mmHg (75.0-100.0); BG SAMPLE SITE A-LINE; BG TIDAL VOLUME(mL) 500 mL; BG TOTAL HEMOGLOBIN 8.5 g/dL (12.0-18.0); BG VENT MODE VENT - A/C; BG VENT RATE 18 set
[2018-10-20] MEDS: LEVOFLOXACIN 500MG PREMIX 100 ML IV SCH (22:03)
[2018-10-20 22:59] LABS: HEMATOCRIT. 23.7 % (42.0-52.0); MEAN CORPUSCULAR HEMOGLOBIN 29.7 pg (28.0-32.0); MEAN CORPUSCULAR VOLUME 87.6 fL (80.0-94.0); MEAN PLATELET VOLUME 11.1 fl (7.4-10.4); PLATELET 84 x1000/uL (130-400); RED CELL DISTRIBUTION WIDTH 15.8 % (11.6-14.6)
[2018-10-20 23:05] LABS: PHOSPHORUS 3.5 mg/dL (2.5-4.9)
[2018-10-20 23:20] LABS: NUCLEATED RED BLOOD CELLS 1 /100 WBC; PLATELET ESTIMATE DECREASED
[2018-10-21] VITALS (102 sets, daily range): BP systolic 66–167; BP diastolic 26–88
[2018-10-21 00:40] LABS: BG BASE EXCESS -0.8 mmol/L (-2.0-2.0); BG CARBOXYHEMOGLOBIN 0.4 % (0.5-1.5); BG DEOXYHEMOGLOBIN 4.2 % (0.0-5.0); BG FRACTION INSPIRED OXYGEN 40; BG HCO3 ACT 23.5 mmol/L (22.0-26.0); BG METHEMOGLOBIN 0.3 % (0.0-1.5); BG OXYGEN SATURATION 95.8 % (92.0-98.5); BG OXYHEMOGLOBIN 95.1 % (94.0-97.0); BG PCO2 37.3 mmHg (35.0-45.0); BG PH 7.418 (7.350-7.450); BG PO2 91.4 mmHg (75.0-100.0); BG SAMPLE SITE A-LINE; BG TIDAL VOLUME(mL) 500 mL; BG TOTAL HEMOGLOBIN 7.9 g/dL (12.0-18.0); BG VENT MODE VENT - A/C; BG VENT RATE 18 set
[2018-10-21] MEDS: KCL 10MEQ/50ML PREMIX 100 ML IV PRN ×3 (01:30→08:41)
[2018-10-21] MEDS: NOREPINEPHRINE 4 MG in DEXT 5% WATER 250 ML IV SCH (01:31)
[2018-10-21] MEDS: LORAZEPAM 2MG/ML CPJ IV PRN ×2 (01:56→08:49)
[2018-10-21] MEDS: EPINEPHRINE 4 MG in SODIUM CHLORIDE 0.9% 246 ML IV PRN ×2 (02:34→21:09)
[2018-10-21 05:53] LABS: HEMATOCRIT 27.5 % (42.0-52.0); HEMOGLOBIN 9.4 g/dL (14.0-18.0); MEAN CORPUSCULAR HEMOGLOBIN 30.1 pg (28.0-32.0); MEAN CORPUSCULAR VOLUME 87.8 fL (80.0-94.0); PLATELET 74 x1000/uL (130-400); RED BLOOD CELL COUNT 3.13 mill/uL (4.7-6.1); RED CELL DISTRIBUTION WIDTH 15.3 % (11.6-14.6)
[2018-10-21 06:32] LABS: BG BASE EXCESS -4.2 mmol/L (-2.0-2.0); BG CARBOXYHEMOGLOBIN 0.1 % (0.5-1.5); BG DEOXYHEMOGLOBIN 3.8 % (0.0-5.0); BG FRACTION INSPIRED OXYGEN 40; BG HCO3 ACT 20.1 mmol/L (22.0-26.0); BG METHEMOGLOBIN 0.3 % (0.0-1.5); BG OXYGEN SATURATION 96.2 % (92.0-98.5); BG OXYHEMOGLOBIN 95.8 % (94.0-97.0); BG PCO2 34.2 mmHg (35.0-45.0); BG PH 7.388 (7.350-7.450); BG PO2 98.9 mmHg (75.0-100.0); BG SAMPLE SITE A-LINE; BG TIDAL VOLUME(mL) 480 mL; BG TOTAL HEMOGLOBIN 9.9 g/dL (12.0-18.0); BG VENT MODE VENT - A/C; BG VENT RATE 18 set
[2018-10-21 07:48] LABS: INR 1.2; PARTIAL THROMBOPLASTIN TIME 34.4 sec (23.4-31.0); PROTHROMBIN TIME 12.3 sec (9.6-11.0)
[2018-10-21] MEDS: MORPHINE SULFATE 2 MG/ML CPJ (NOT FOR IM USE) IV PRN ×2 (07:49→16:18)
[2018-10-21] MEDS: GLIPIZIDE 5MG TABLET PO SCH (07:50)
[2018-10-21] MEDS ORDERED: MAGNESIUM SULFATE 3 GM in DEXT 5% WATER 100 ML IV PRN (08:00)
[2018-10-21] MEDS ORDERED: ALBUMIN HUMAN 25GM/100ML (25%) IV ONE (08:30)
[2018-10-21] MEDS ORDERED: FUROSEMIDE 20MG/2ML VIAL IVP ONE (08:30)
[2018-10-21] MEDS ORDERED: SODIUM BICARBONATE 8.4% 1 MEQ/ML 50ML SYR IV ONE (08:30)
[2018-10-21] MEDS: IPRATROPIUM/ALBUTEROL 0.5-3(2.5)MG/3ML NEB HHN SCH ×3 (08:31→20:43)
[2018-10-21] MEDS ORDERED: ALBUMIN HUMAN 12.5G/250ML (5%) IV ONE (08:45)
[2018-10-21] MEDS: MAGNESIUM HYDROXIDE 400MG/5ML 30ML UDC PO SCH ×5 (08:49→21:14)
[2018-10-21] MEDS: ALLOPURINOL 100 MG TABLET PO SCH (09:00)
[2018-10-21] MEDS: METHYLPREDNISOLONE SOD SUCC 40 MG/ML VIAL IV SCH ×2 (09:00→21:14)
[2018-10-21] MEDS: BACITRACIN 15GM TUBE TOP SCH ×2 (09:00→16:18)
[2018-10-21] MEDS: SACUBITRIL/VALSARTAN 24/26 TAB PO SCH ×2 (09:00→21:00)
[2018-10-21] MEDS ORDERED: FAMOTIDINE 20MG/2ML VIAL IV SCH (09:00)
[2018-10-21] MEDS: AZITHROMYCIN 500 MG TABLET PO SCH (09:00)
[2018-10-21] MEDS: DOCUSATE SODIUM 100MG CAPSULE PO SCH ×2 (09:00→16:18)
[2018-10-21] MEDS: GUAIFENESIN 600MG ER TABLET PO SCH ×2 (09:00→21:14)
[2018-10-21] MEDS: OXYCODONE HCL/ACETAMINOPHEN 5/325MG TABLET PO PRN ×2 (09:16→18:32)
[2018-10-21 09:51] LABS: BG BASE EXCESS -1.7 mmol/L (-2.0-2.0); BG CARBOXYHEMOGLOBIN 0.5 % (0.5-1.5); BG DEOXYHEMOGLOBIN 2.7 % (0.0-5.0); BG FRACTION INSPIRED OXYGEN 40; BG HCO3 ACT 22.7 mmol/L (22.0-26.0); BG METHEMOGLOBIN 0.1 % (0.0-1.5); BG OXYGEN SATURATION 97.3 % (92.0-98.5); BG OXYHEMOGLOBIN 96.7 % (94.0-97.0); BG PCO2 37.3 mmHg (35.0-45.0); BG PH 7.403 (7.350-7.450); BG PO2 104.1 mmHg (75.0-100.0); BG PRESSURE SUPPORT 14; BG SAMPLE SITE A-LINE; BG TIDAL VOLUME(mL) 480 mL; BG TOTAL HEMOGLOBIN 9.5 g/dL (12.0-18.0); BG VENT MODE VENT - SIMV; BG VENT RATE 12 set
[2018-10-21 11:10] LABS: BG BASE EXCESS -1.9 mmol/L (-2.0-2.0); BG CARBOXYHEMOGLOBIN 0.4 % (0.5-1.5); BG FRACTION INSPIRED OXYGEN 40; BG HCO3 ACT 22.6 mmol/L (22.0-26.0); BG METHEMOGLOBIN 0.3 % (0.0-1.5); BG OXYHEMOGLOBIN 96.3 % (94.0-97.0); BG PCO2 37.2 mmHg (35.0-45.0); BG PH 7.402 (7.350-7.450); BG PO2 107.6 mmHg (75.0-100.0); BG PRESSURE SUPPORT 14; BG SAMPLE SITE A-LINE; BG TIDAL VOLUME(mL) 480 mL; BG TOTAL HEMOGLOBIN 8.3 g/dL (12.0-18.0); BG VENT MODE VENT - SIMV; BG VENT RATE 10 set
[2018-10-21] MEDS: DILTIAZEM HCL 30MG TABLET PO SCH ×3 (11:14→16:19)
[2018-10-21] MEDS: DEXT 5%/0.45% NACL 1000ML 1,000 ML IV SCH (11:18)
[2018-10-21 12:53] LABS: BG BASE EXCESS -1.8 mmol/L (-2.0-2.0); BG CARBOXYHEMOGLOBIN 0.4 % (0.5-1.5); BG DEOXYHEMOGLOBIN 3.4 % (0.0-5.0); BG FRACTION INSPIRED OXYGEN 40; BG HCO3 ACT 22.9 mmol/L (22.0-26.0); BG METHEMOGLOBIN 0.3 % (0.0-1.5); BG OXYGEN SATURATION 96.6 % (92.0-98.5); BG OXYHEMOGLOBIN 95.9 % (94.0-97.0); BG PCO2 38.5 mmHg (35.0-45.0); BG PH 7.392 (7.350-7.450); BG PO2 97.4 mmHg (75.0-100.0); BG PRESSURE SUPPORT 12; BG SAMPLE SITE A-LINE; BG TIDAL VOLUME(mL) 480 mL; BG VENT MODE VENT - SIMV; BG VENT RATE 8 set
[2018-10-21 14:20] LABS: BG BASE EXCESS -3.9 mmol/L (-2.0-2.0); BG CARBOXYHEMOGLOBIN 0.3 % (0.5-1.5); BG DEOXYHEMOGLOBIN 3.8 % (0.0-5.0); BG FRACTION INSPIRED OXYGEN 40; BG HCO3 ACT 21.1 mmol/L (22.0-26.0); BG METHEMOGLOBIN 0.2 % (0.0-1.5); BG OXYGEN SATURATION 96.2 % (92.0-98.5); BG OXYHEMOGLOBIN 95.7 % (94.0-97.0); BG PCO2 37.8 mmHg (35.0-45.0); BG PH 7.364 (7.350-7.450); BG PO2 102.8 mmHg (75.0-100.0); BG PRESSURE SUPPORT 10; BG SAMPLE SITE A-LINE; BG TOTAL HEMOGLOBIN 9.1 g/dL (12.0-18.0); BG VENT MODE VENT - CPAP
[2018-10-21 16:00] LABS: PHOSPHORUS 4.5 mg/dL (2.5-4.9)
[2018-10-21 16:02] LABS: HEMATOCRIT. 25.2 % (42.0-52.0); HEMOGLOBIN. 8.6 g/dL (14.0-18.0); MEAN CORPUSCULAR VOLUME 88.2 fL (80.0-94.0); MEAN PLATELET VOLUME 11.4 fl (7.4-10.4); PLATELET 57 x1000/uL (130-400); RED BLOOD CELL COUNT 2.86 mill/uL (4.7-6.1); RED CELL DISTRIBUTION WIDTH 15.2 % (11.6-14.6)
[2018-10-21 16:12] LABS: BG BASE EXCESS -0.5 mmol/L (-2.0-2.0); BG CARBOXYHEMOGLOBIN 0.4 % (0.5-1.5); BG FRACTION INSPIRED OXYGEN 35; BG HCO3 ACT 24.3 mmol/L (22.0-26.0); BG METHEMOGLOBIN 0.3 % (0.0-1.5); BG OXYHEMOGLOBIN 96.3 % (94.0-97.0); BG PCO2 40.3 mmHg (35.0-45.0); BG PH 7.398 (7.350-7.450); BG PO2 100.7 mmHg (75.0-100.0); BG SAMPLE SITE A-LINE; BG TOTAL HEMOGLOBIN 8.9 g/dL (12.0-18.0); BG VENT MODE MASK - AEROSOL
[2018-10-21] MEDS: ASPIRIN 81MG TABLET PO SCH (16:18)
[2018-10-21] MEDS ORDERED: AMIODARONE HCL 150 MG in DEXT 5% WATER 100 ML IV NR (16:30)
[2018-10-21] MEDS: AMIODARONE HCL 900 MG in DEXT 5% WATER 482 ML IV SCH (17:46)
[2018-10-21 19:28] LABS: HEMATOCRIT. 24.6 % (42.0-52.0); HEMOGLOBIN. 8.4 g/dL (14.0-18.0); MEAN CORPUSCULAR HEMOGLOBIN 30.1 pg (28.0-32.0); MEAN CORPUSCULAR VOLUME 88.6 fL (80.0-94.0); MEAN PLATELET VOLUME 12.4 fl (7.4-10.4); PLATELET 55 x1000/uL (130-400); RED BLOOD CELL COUNT 2.78 mill/uL (4.7-6.1); RED CELL DISTRIBUTION WIDTH 15.4 % (11.6-14.6)
[2018-10-21 20:42] LABS: PLATELET ESTIMATE DECREASED
[2018-10-21 20:48] LABS: NUCLEATED RED BLOOD CELLS 1 /100 WBC; PLATELET ESTIMATE DECREASED
[2018-10-21] MEDS: LEVOFLOXACIN 250MG PREMIX 50 ML IV SCH (21:15)
[2018-10-21] MEDS: ATORVASTATIN CALCIUM 40MG TABLET PO SCH (21:15)
[2018-10-21] MEDS ORDERED: DEXTROSE 50% WATER 50ML SYRINGE IV PRN ×2 (22:30)
[2018-10-21] MEDS: BLOOD SUGAR DIAGNOSTIC STRIP TEST SCH (23:00)
[2018-10-22] VITALS (140 sets, daily range): BP systolic 94–191; BP diastolic 26–123
[2018-10-22] MEDS: IPRATROPIUM/ALBUTEROL 0.5-3(2.5)MG/3ML NEB HHN SCH ×4 (00:41→21:12)
[2018-10-22] MEDS: BLOOD SUGAR DIAGNOSTIC STRIP TEST SCH ×24 (01:09→23:21)
[2018-10-22] MEDS: INSULIN REGULAR (DRIP) 100 UNITS in SODIUM CHLORIDE 0.9% 99 ML IV SCH (02:21)
[2018-10-22] MEDS: MORPHINE SULFATE 2 MG/ML CPJ (NOT FOR IM USE) IV PRN ×3 (02:32→21:23)
[2018-10-22] MEDS: MAGNESIUM HYDROXIDE 400MG/5ML 30ML UDC PO SCH ×7 (04:55→23:21)
[2018-10-22 05:47] LABS: HEMATOCRIT. 28.4 % (42.0-52.0); HEMOGLOBIN. 9.6 g/dL (14.0-18.0); MEAN CORPUSCULAR HEMOGLOBIN 29.8 pg (28.0-32.0); MEAN CORPUSCULAR VOLUME 88.1 fL (80.0-94.0); MEAN PLATELET VOLUME 11.8 fl (7.4-10.4); PLATELET 54 x1000/uL (130-400); RED BLOOD CELL COUNT 3.23 mill/uL (4.7-6.1); RED CELL DISTRIBUTION WIDTH 15.5 % (11.6-14.6)
[2018-10-22 05:58] LABS: PHOSPHORUS 4.2 mg/dL (2.5-4.9)
[2018-10-22] MEDS: DILTIAZEM HCL 30MG TABLET PO SCH ×2 (06:00)
[2018-10-22] MEDS: OXYCODONE HCL/ACETAMINOPHEN 5/325MG TABLET PO PRN ×2 (06:18→22:18)
[2018-10-22 07:12] LABS: PLATELET ESTIMATE DECREASED
[2018-10-22] MEDS: GLIPIZIDE 5MG TABLET PO SCH (07:50)
[2018-10-22 08:19] LABS: BG BASE EXCESS -0.5 mmol/L (-2.0-2.0); BG CARBOXYHEMOGLOBIN 0.8 % (0.5-1.5); BG DEOXYHEMOGLOBIN 2.9 % (0.0-5.0); BG FRACTION INSPIRED OXYGEN 28; BG HCO3 ACT 24.1 mmol/L (22.0-26.0); BG METHEMOGLOBIN 0.1 % (0.0-1.5); BG OXYGEN SATURATION 97.1 % (92.0-98.5); BG OXYHEMOGLOBIN 96.2 % (94.0-97.0); BG PCO2 39.4 mmHg (35.0-45.0); BG PH 7.405 (7.350-7.450); BG PO2 98.6 mmHg (75.0-100.0); BG SAMPLE SITE A-LINE; BG TOTAL HEMOGLOBIN 10.5 g/dL (12.0-18.0); BG VENT MODE NASAL CANNULA
[2018-10-22] MEDS: BACITRACIN 15GM TUBE TOP SCH ×2 (09:00→17:06)
[2018-10-22] MEDS: AZITHROMYCIN 500 MG TABLET PO SCH (09:00)
[2018-10-22] MEDS: DEXT 5%/0.45% NACL 1000ML 1,000 ML IV SCH (09:03)
[2018-10-22] MEDS: ASPIRIN 81MG TABLET PO SCH (11:00)
[2018-10-22] MEDS: FAMOTIDINE 20MG TABLET PO SCH (11:00)
[2018-10-22] MEDS: DOCUSATE SODIUM 100MG CAPSULE PO SCH ×2 (11:00→17:06)
[2018-10-22] MEDS ORDERED: POTASSIUM CHLORIDE 20MEQ TABLET SR PO ONE (11:15)
[2018-10-22] MEDS ORDERED: EPINEPHRINE 4 MG in SODIUM CHLORIDE 0.9% 246 ML IV PRN (11:31)
[2018-10-22] MEDS ORDERED: FUROSEMIDE 20MG/2ML VIAL IVP NR (11:45)
[2018-10-22] MEDS: AMIODARONE HCL 900 MG in DEXT 5% WATER 482 ML IV SCH (14:50)
[2018-10-22 19:36] LABS: HEMATOCRIT. 28.4 % (42.0-52.0); HEMOGLOBIN. 9.6 g/dL (14.0-18.0); MEAN CORPUSCULAR HEMOGLOBIN 29.9 pg (28.0-32.0); MEAN CORPUSCULAR VOLUME 88.4 fL (80.0-94.0); MEAN PLATELET VOLUME 12.4 fl (7.4-10.4); PLATELET 56 x1000/uL (130-400); RED BLOOD CELL COUNT 3.22 mill/uL (4.7-6.1); RED CELL DISTRIBUTION WIDTH 15.7 % (11.6-14.6)
[2018-10-22] MEDS: LEVOFLOXACIN 250MG PREMIX 50 ML IV SCH (20:44)
[2018-10-22 20:54] LABS: PLATELET ESTIMATE DECREASED
[2018-10-23] VITALS (101 sets, daily range): BP systolic 62–185; BP diastolic 18–142
[2018-10-23] MEDS: BLOOD SUGAR DIAGNOSTIC STRIP TEST SCH ×23 (00:13→23:57)
[2018-10-23] MEDS: IPRATROPIUM/ALBUTEROL 0.5-3(2.5)MG/3ML NEB HHN SCH ×4 (02:24→20:47)
[2018-10-23 05:12] LABS: HEMATOCRIT. 29.2 % (42.0-52.0); HEMOGLOBIN. 9.8 g/dL (14.0-18.0); MEAN CORPUSCULAR HEMOGLOBIN 29.6 pg (28.0-32.0); MEAN CORPUSCULAR VOLUME 88.3 fL (80.0-94.0); MEAN PLATELET VOLUME 11.8 fl (7.4-10.4); PLATELET 68 x1000/uL (130-400); RED BLOOD CELL COUNT 3.31 mill/uL (4.7-6.1); RED CELL DISTRIBUTION WIDTH 15.3 % (11.6-14.6)
[2018-10-23 05:28] LABS: PHOSPHORUS 3.5 mg/dL (2.5-4.9)
[2018-10-23] MEDS: DEXT 5%/0.45% NACL 1000ML 1,000 ML IV SCH (06:51)
[2018-10-23] MEDS: MAGNESIUM HYDROXIDE 400MG/5ML 30ML UDC PO SCH ×5 (06:51→22:18)
[2018-10-23 07:30] LABS: PLATELET ESTIMATE DECREASED
[2018-10-23] MEDS ORDERED: FUROSEMIDE 40MG/4ML VIAL IVP NR (07:30)
[2018-10-23] MEDS ORDERED: LACTULOSE 20G/30ML UDC PO NR (07:30)
[2018-10-23] MEDS: DOCUSATE SODIUM 100MG CAPSULE PO SCH ×2 (08:11→15:58)
[2018-10-23] MEDS: BACITRACIN 15GM TUBE TOP SCH ×2 (08:11→15:58)
[2018-10-23] MEDS: OXYCODONE HCL/ACETAMINOPHEN 5/325MG TABLET PO PRN ×3 (08:11→19:33)
[2018-10-23] MEDS: FAMOTIDINE 20MG TABLET PO SCH (08:11)
[2018-10-23] MEDS: ASPIRIN 81MG TABLET PO SCH (08:11)
[2018-10-23] MEDS ORDERED: AMIODARONE HCL 200 MG TABLET PO SCH (11:00)
[2018-10-23] MEDS ORDERED: LIDOCAINE HCL 1% 20ML VIAL (Pyxis) INJ ONE (11:34)
[2018-10-23] MEDS: ALLOPURINOL 100 MG TABLET PO SCH (12:17)
[2018-10-23] MEDS: SACUBITRIL/VALSARTAN 24/26 TAB PO SCH (12:17)
[2018-10-23] MEDS: GUAIFENESIN 600MG ER TABLET PO SCH ×2 (12:18→22:18)
[2018-10-23] MEDS: INSULIN REGULAR (DRIP) 100 UNITS in SODIUM CHLORIDE 0.9% 99 ML IV SCH (15:32)
[2018-10-23] MEDS: MORPHINE SULFATE 2 MG/ML CPJ (NOT FOR IM USE) IV PRN (21:42)
[2018-10-23] MEDS: ATORVASTATIN CALCIUM 40MG TABLET PO SCH (22:18)
[2018-10-23] MEDS: LEVOFLOXACIN 250MG PREMIX 50 ML IV SCH (22:21)
[2018-10-24] VITALS (70 sets, daily range): BP systolic 89–167; BP diastolic 28–119
[2018-10-24] MEDS: BLOOD SUGAR DIAGNOSTIC STRIP TEST SCH ×8 (00:04→21:00)
[2018-10-24] MEDS: MAGNESIUM HYDROXIDE 400MG/5ML 30ML UDC PO SCH ×6 (00:08→20:00)
[2018-10-24] MEDS: MORPHINE SULFATE 2 MG/ML CPJ (NOT FOR IM USE) IV PRN ×2 (01:22→16:23)
[2018-10-24] MEDS: IPRATROPIUM/ALBUTEROL 0.5-3(2.5)MG/3ML NEB HHN SCH ×4 (01:50→20:49)
[2018-10-24] MEDS ORDERED: DEXTROSE 50% WATER 50ML SYRINGE IV PRN (05:30)
[2018-10-24 05:52] LABS: HEMATOCRIT. 32.6 % (42.0-52.0); HEMOGLOBIN. 10.7 g/dL (14.0-18.0); MEAN CORPUSCULAR HEMOGLOBIN 29.6 pg (28.0-32.0); MEAN CORPUSCULAR VOLUME 90.3 fL (80.0-94.0); PLATELET 109 x1000/uL (130-400); RED BLOOD CELL COUNT 3.61 mill/uL (4.7-6.1); RED CELL DISTRIBUTION WIDTH 15.5 % (11.6-14.6)
[2018-10-24 05:56] LABS: PHOSPHORUS 2.8 mg/dL (2.5-4.9)
[2018-10-24] MEDS: OXYCODONE HCL/ACETAMINOPHEN 5/325MG TABLET PO PRN (06:38)
[2018-10-24] MEDS: INSULIN LISPRO 100 UNITS/ML SUBCUT SCH ×5 (07:50→21:00)
[2018-10-24] MEDS: ASPIRIN 81MG TABLET PO SCH (08:19)
[2018-10-24] MEDS: GUAIFENESIN 600MG ER TABLET PO SCH ×2 (08:20→21:38)
[2018-10-24] MEDS: DOCUSATE SODIUM 100MG CAPSULE PO SCH ×2 (08:20→16:39)
[2018-10-24] MEDS: FAMOTIDINE 20MG TABLET PO SCH (08:20)
[2018-10-24] MEDS: BACITRACIN 15GM TUBE TOP SCH ×2 (08:20→16:40)
[2018-10-24] MEDS: ALLOPURINOL 100 MG TABLET PO SCH (08:20)
[2018-10-24] MEDS: AMIODARONE HCL 200 MG TABLET PO SCH (08:20)
[2018-10-24 08:38] LABS: NUCLEATED RED BLOOD CELLS 1 /100 WBC; PLATELET ESTIMATE NORMAL
[2018-10-24] MEDS ORDERED: LACTULOSE 20G/30ML UDC PO SCH (10:10)
[2018-10-24] MEDS ORDERED: FUROSEMIDE 40MG/4ML VIAL IVP NR ×2 (10:15→22:30)
[2018-10-24] MEDS: ONDANSETRON HCL 4MG/2ML INJ IV PRN (14:35)
[2018-10-24] MEDS ORDERED: NA PHOS,M-B/NA PHOS,DI-BA ENEMA 118ML PR SCH (14:45)
[2018-10-24] MEDS ORDERED: BISACODYL 10MG SUPP PR PRN (14:45)
[2018-10-24] MEDS: LEVOFLOXACIN 250MG PREMIX 50 ML IV SCH (21:22)
[2018-10-24] MEDS: ATORVASTATIN CALCIUM 40MG TABLET PO SCH (21:38)
[2018-10-25] VITALS (62 sets, daily range): BP systolic 83–164; BP diastolic 35–126
[2018-10-25] MEDS: MAGNESIUM HYDROXIDE 400MG/5ML 30ML UDC PO SCH ×2 (00:36→04:24)
[2018-10-25] MEDS: IPRATROPIUM/ALBUTEROL 0.5-3(2.5)MG/3ML NEB HHN SCH ×4 (02:35→20:45)
[2018-10-25 05:53] LABS: CHLORIDE 98 mEq/L (98-107)
[2018-10-25 05:55] LABS: HEMATOCRIT. 33.6 % (42.0-52.0); HEMOGLOBIN. 11.3 g/dL (14.0-18.0); MEAN CORPUSCULAR HEMOGLOBIN 30.1 pg (28.0-32.0); MEAN CORPUSCULAR VOLUME 89.9 fL (80.0-94.0); MEAN PLATELET VOLUME 11.2 fl (7.4-10.4); PLATELET 181 x1000/uL (130-400); RED BLOOD CELL COUNT 3.74 mill/uL (4.7-6.1); RED CELL DISTRIBUTION WIDTH 14.9 % (11.6-14.6)
[2018-10-25 06:00] LABS: PHOSPHORUS 2.7 mg/dL (2.5-4.9)
[2018-10-25] MEDS ORDERED: MAGNESIUM HYDROXIDE 400MG/5ML 30ML UDC PO PRN (07:30)
[2018-10-25] MEDS: BLOOD SUGAR DIAGNOSTIC STRIP TEST SCH ×4 (07:50→20:31)
[2018-10-25] MEDS: INSULIN LISPRO 100 UNITS/ML SUBCUT SCH ×4 (07:59→20:43)
[2018-10-25] MEDS: GUAIFENESIN 600MG ER TABLET PO SCH ×3 (08:11→20:31)
[2018-10-25] MEDS: BACITRACIN 15GM TUBE TOP SCH ×2 (08:11→16:41)
[2018-10-25] MEDS: ASPIRIN 81MG TABLET PO SCH (08:12)
[2018-10-25] MEDS: DOCUSATE SODIUM 100MG CAPSULE PO SCH ×3 (08:12→16:08)
[2018-10-25] MEDS: AMIODARONE HCL 200 MG TABLET PO SCH (08:12)
[2018-10-25] MEDS: ALLOPURINOL 100 MG TABLET PO SCH (08:12)
[2018-10-25] MEDS: FAMOTIDINE 20MG TABLET PO SCH (08:12)
[2018-10-25] MEDS: ONDANSETRON HCL 4MG/2ML INJ IV PRN (08:25)
[2018-10-25] MEDS ORDERED: AMIODARONE HCL 150 MG in DEXT 5% WATER 100 ML IV NR (10:00)
[2018-10-25] MEDS: FUROSEMIDE 40MG/4ML VIAL IVP SCH ×2 (10:31→17:09)
[2018-10-25] MEDS ORDERED: METOCLOPRAMIDE HCL 10MG/2ML VIAL IV PRN (10:45)
[2018-10-25] MEDS: AMIODARONE HCL 900 MG in DEXT 5% WATER 482 ML IV PRN (10:59)
[2018-10-25] MEDS ORDERED: KCL 20MEQ/100ML PREMIX 100 ML IV NR ×2 (11:00→18:00)
[2018-10-25 12:18] LABS: BG BASE EXCESS 10.3 mmol/L (-2.0-2.0); BG CARBOXYHEMOGLOBIN 0.6 % (0.5-1.5); BG FRACTION INSPIRED OXYGEN 32; BG METHEMOGLOBIN 0.2 % (0.0-1.5); BG OXYHEMOGLOBIN 97.2 % (94.0-97.0); BG PCO2 47.2 mmHg (35.0-45.0); BG PH 7.488 (7.350-7.450); BG PO2 106.5 mmHg (75.0-100.0); BG SAMPLE SITE RIGHT RADIAL; BG TOTAL HEMOGLOBIN 12.1 g/dL (12.0-18.0); BG VENT MODE NASAL CANNULA
[2018-10-25 13:36] LABS: PLATELET ESTIMATE NORMAL
[2018-10-25] MEDS: MORPHINE SULFATE 2 MG/ML CPJ (NOT FOR IM USE) IV PRN (14:47)
[2018-10-25] MEDS: PIPERACILLIN/TAZ 3.375G PREMIX 50 ML IV SCH (17:09)
[2018-10-25] MEDS: METOCLOPRAMIDE HCL 10MG/2ML VIAL IV SCH (17:09)
[2018-10-25] MEDS: DEXT 5%/0.45% NACL 1000ML 1,000 ML IV SCH (17:09)
[2018-10-25] MEDS ORDERED: NA PHOS,M-B/NA PHOS,DI-BA ENEMA 118ML PR NR (17:49)
[2018-10-25] MEDS: LORAZEPAM 2MG/ML CPJ IV PRN (20:07)
[2018-10-25] MEDS: ATORVASTATIN CALCIUM 40MG TABLET PO SCH (20:31)
[2018-10-26] VITALS (43 sets, daily range): BP systolic 93–144; BP diastolic 39–94
[2018-10-26] MEDS ORDERED: LORAZEPAM 2MG/ML CPJ IV PRN
[2018-10-26] MEDS ORDERED: OXYCODONE HCL/ACETAMINOPHEN 5/325MG TABLET PO PRN
[2018-10-26] MEDS: PIPERACILLIN/TAZ 3.375G PREMIX 50 ML IV SCH ×5 (00:33→23:52)
[2018-10-26] MEDS: METOCLOPRAMIDE HCL 10MG/2ML VIAL IV SCH ×4 (00:33→23:52)
[2018-10-26] MEDS: IPRATROPIUM/ALBUTEROL 0.5-3(2.5)MG/3ML NEB HHN SCH ×4 (01:13→20:43)
[2018-10-26] MEDS: OXYCODONE HCL/ACETAMINOPHEN 5/325MG TABLET PO PRN ×2 (05:23→20:28)
[2018-10-26] MEDS: AMIODARONE HCL 900 MG in DEXT 5% WATER 482 ML IV PRN (06:11)
[2018-10-26 06:38] LABS: HEMATOCRIT. 29.4 % (42.0-52.0); HEMOGLOBIN. 9.7 g/dL (14.0-18.0); MEAN CORPUSCULAR HEMOGLOBIN 29.9 pg (28.0-32.0); MEAN CORPUSCULAR VOLUME 90.7 fL (80.0-94.0); MEAN PLATELET VOLUME 10.2 fl (7.4-10.4); PLATELET 147 x1000/uL (130-400); RED BLOOD CELL COUNT 3.25 mill/uL (4.7-6.1); RED CELL DISTRIBUTION WIDTH 15.2 % (11.6-14.6)
[2018-10-26 06:55] LABS: CHLORIDE 99 mEq/L (98-107)
[2018-10-26 07:01] LABS: PHOSPHORUS 2.6 mg/dL (2.5-4.9)
[2018-10-26] MEDS: INSULIN LISPRO 100 UNITS/ML SUBCUT SCH ×3 (08:20→17:43)
[2018-10-26] MEDS: BLOOD SUGAR DIAGNOSTIC STRIP TEST SCH ×4 (08:32→23:52)
[2018-10-26] MEDS: FAMOTIDINE 20MG TABLET PO SCH (09:06)
[2018-10-26] MEDS: ASPIRIN 81MG TABLET PO SCH (09:06)
[2018-10-26] MEDS: DOCUSATE SODIUM 100MG CAPSULE PO SCH ×2 (09:06→17:18)
[2018-10-26] MEDS: ALLOPURINOL 100 MG TABLET PO SCH (09:06)
[2018-10-26] MEDS: GUAIFENESIN 600MG ER TABLET PO SCH ×2 (09:06→20:28)
[2018-10-26] MEDS: BACITRACIN 15GM TUBE TOP SCH ×2 (09:07→17:18)
[2018-10-26] MEDS: DEXT 5%/0.45% NACL 1000ML 1,000 ML IV SCH (09:55)
[2018-10-26] MEDS ORDERED: DIATR MEGLU/DIATRIZOATE SOLN 30ML PO SCH (10:30)
[2018-10-26 11:15] LABS: AMYLASE 249 IU/L (25-115)
[2018-10-26] MEDS ORDERED: DIATR MEGLU/DIATRIZOATE SOLN 120ML ONE ×2 (11:42→12:48)
[2018-10-26 12:10] LABS: PLATELET ESTIMATE NORMAL
[2018-10-26] MEDS: KCL 10MEQ/50ML PREMIX 150 ML IV PRN ×4 (14:33→19:40)
[2018-10-26] MEDS ORDERED: [UNRECOGNIZED DRUG - REMARK] IV SCH ×2 (17:00)
[2018-10-26] MEDS: DOCUSATE SODIUM SUGAR FREE 100MG/10ML UDC NG SCH (17:46)
[2018-10-26] MEDS: ATORVASTATIN CALCIUM 40MG TABLET PO SCH (20:26)
[2018-10-26] MEDS ORDERED: FAT EMULSIONS 500 ML IV SCH (21:00)
[2018-10-27] VITALS (41 sets, daily range): BP systolic 64–176; BP diastolic 32–95
[2018-10-27] MEDS: KCL 10MEQ/50ML PREMIX 150 ML IV PRN ×3 (00:26→02:42)
[2018-10-27] MEDS: IPRATROPIUM/ALBUTEROL 0.5-3(2.5)MG/3ML NEB HHN SCH ×4 (02:20→20:08)
[2018-10-27 05:17] LABS: HEMATOCRIT. 29.8 % (42.0-52.0); MEAN CORPUSCULAR HEMOGLOBIN 30.5 pg (28.0-32.0); MEAN CORPUSCULAR VOLUME 91.1 fL (80.0-94.0); MEAN PLATELET VOLUME 9.9 fl (7.4-10.4); PLATELET 172 x1000/uL (130-400); RED BLOOD CELL COUNT 3.27 mill/uL (4.7-6.1); RED CELL DISTRIBUTION WIDTH 14.9 % (11.6-14.6)
[2018-10-27 05:27] LABS: CHLORIDE 102 mEq/L (98-107)
[2018-10-27 05:40] LABS: HDL CHOLESTEROL 38 mg/dL (40-59); LDL CHOLESTEROL 53 mg/dL (5-100); PHOSPHORUS 1.8 mg/dL (2.5-4.9)
[2018-10-27] MEDS: HYDROCODONE/ACETAMINOPHEN 5/325MG TABLET PO PRN (05:45)
[2018-10-27] MEDS: METOCLOPRAMIDE HCL 10MG/2ML VIAL IV SCH ×3 (05:45→17:35)
[2018-10-27] MEDS: INSULIN LISPRO 100 UNITS/ML SUBCUT SCH ×4 (05:46→18:00)
[2018-10-27] MEDS: PIPERACILLIN/TAZ 3.375G PREMIX 50 ML IV SCH ×3 (05:46→17:35)
[2018-10-27] MEDS: BLOOD SUGAR DIAGNOSTIC STRIP TEST SCH ×3 (05:46→18:27)
[2018-10-27] MEDS: KCL 10MEQ/50ML PREMIX 100 ML IV PRN ×4 (07:41→16:47)
[2018-10-27] MEDS: ALLOPURINOL 100 MG TABLET PO SCH (08:34)
[2018-10-27] MEDS: ASPIRIN 81MG TABLET PO SCH (08:34)
[2018-10-27] MEDS: ENOXAPARIN 40MG/0.4ML SYR SUBCUT SCH (08:34)
[2018-10-27] MEDS: DOCUSATE SODIUM SUGAR FREE 100MG/10ML UDC NG SCH ×2 (08:34→17:35)
[2018-10-27] MEDS: FAMOTIDINE 20MG TABLET PO SCH (08:35)
[2018-10-27] MEDS: GUAIFENESIN 600MG ER TABLET PO SCH ×2 (08:35→21:59)
[2018-10-27] MEDS: BACITRACIN 15GM TUBE TOP SCH ×2 (08:35→17:35)
[2018-10-27] MEDS ORDERED: DEXT 10% WATER 1,000 ML IV SCH (09:50)
[2018-10-27] MEDS: AMIODARONE HCL 900 MG in DEXT 5% WATER 482 ML IV PRN (12:20)
[2018-10-27 12:23] LABS: PLATELET ESTIMATE NORMAL
[2018-10-27] MEDS: MAGNESIUM 2 G PREMIX 50 ML IV PRN (13:05)
[2018-10-27] MEDS ORDERED: AMIODARONE HCL 900 MG in DEXT 5% WATER 482 ML IV PRN (18:45)
[2018-10-27] MEDS ORDERED: TOTAL PARENTERAL NUTRITION 1,000 ML IV SCH (21:00)
[2018-10-27] MEDS: ATORVASTATIN CALCIUM 40MG TABLET PO SCH (21:59)
[2018-10-28] VITALS (49 sets, daily range): BP systolic 88–158; BP diastolic 42–108
[2018-10-28] MEDS: METOCLOPRAMIDE HCL 10MG/2ML VIAL IV SCH ×4 (00:26→18:15)
[2018-10-28] MEDS: PIPERACILLIN/TAZ 3.375G PREMIX 50 ML IV SCH ×4 (00:27→18:15)
[2018-10-28] MEDS: BLOOD SUGAR DIAGNOSTIC STRIP TEST SCH ×4 (00:27→18:16)
[2018-10-28] MEDS ORDERED: LACTULOSE 20G/30ML UDC PO NR (00:30)
[2018-10-28] MEDS: IPRATROPIUM/ALBUTEROL 0.5-3(2.5)MG/3ML NEB HHN SCH ×4 (01:20→20:28)
[2018-10-28] MEDS: HYDROCODONE/ACETAMINOPHEN 5/325MG TABLET PO PRN ×3 (01:42→20:15)
[2018-10-28 05:19] LABS: HEMATOCRIT. 29.6 % (42.0-52.0); HEMOGLOBIN. 9.6 g/dL (14.0-18.0); MEAN CORPUSCULAR HEMOGLOBIN 29.8 pg (28.0-32.0); MEAN CORPUSCULAR VOLUME 91.8 fL (80.0-94.0); PLATELET 163 x1000/uL (130-400); RED BLOOD CELL COUNT 3.23 mill/uL (4.7-6.1); RED CELL DISTRIBUTION WIDTH 14.9 % (11.6-14.6)
[2018-10-28 05:24] LABS: CHLORIDE 101 mEq/L (98-107)
[2018-10-28 05:38] LABS: PHOSPHORUS 1.7 mg/dL (2.5-4.9)
[2018-10-28] MEDS: INSULIN LISPRO 100 UNITS/ML SUBCUT SCH ×4 (06:00→18:00)
[2018-10-28] MEDS: KCL 10MEQ/50ML PREMIX 100 ML IV PRN ×2 (06:52→09:26)
[2018-10-28] MEDS ORDERED: FUROSEMIDE 40MG/4ML VIAL IVP NR (07:45)
[2018-10-28] MEDS: ENOXAPARIN 40MG/0.4ML SYR SUBCUT SCH (08:50)
[2018-10-28] MEDS: ASPIRIN 81MG TABLET PO SCH (08:51)
[2018-10-28] MEDS: ALLOPURINOL 100 MG TABLET PO SCH (08:51)
[2018-10-28] MEDS: FAMOTIDINE 20MG TABLET PO SCH (08:51)
[2018-10-28] MEDS: DOCUSATE SODIUM SUGAR FREE 100MG/10ML UDC NG SCH ×2 (08:52→18:15)
[2018-10-28] MEDS: GUAIFENESIN 600MG ER TABLET PO SCH ×2 (08:56→21:24)
[2018-10-28] MEDS: MAGNESIUM 2 G PREMIX 50 ML IV PRN (08:56)
[2018-10-28] MEDS: BACITRACIN 15GM TUBE TOP SCH ×2 (09:00→18:16)
[2018-10-28 09:21] LABS: PLATELET ESTIMATE NORMAL
[2018-10-28] MEDS ORDERED: POTASSIUM PHOS,M-BASIC-D-BASIC 20 MMOL in DEXT 5% WATER 243.3333 ML IV SCH (14:00)
[2018-10-28] MEDS ORDERED: TOTAL PARENTERAL NUTRITION 1,000 ML IV SCH (21:00)
[2018-10-28] MEDS: ATORVASTATIN CALCIUM 40MG TABLET PO SCH (21:24)
[2018-10-28] MEDS ORDERED: AMIODARONE HCL 900 MG in DEXT 5% WATER 482 ML IV PRN (22:15)
[2018-10-29] VITALS (37 sets, daily range): BP systolic 84–154; BP diastolic 40–112
[2018-10-29] MEDS: BLOOD SUGAR DIAGNOSTIC STRIP TEST SCH ×4 (00:18→21:05)
[2018-10-29] MEDS: METOCLOPRAMIDE HCL 10MG/2ML VIAL IV SCH ×5 (00:21→23:51)
[2018-10-29] MEDS: PIPERACILLIN/TAZ 3.375G PREMIX 50 ML IV SCH ×5 (00:21→23:32)
[2018-10-29] MEDS: IPRATROPIUM/ALBUTEROL 0.5-3(2.5)MG/3ML NEB HHN SCH ×4 (02:21→20:31)
[2018-10-29] MEDS: HYDROCODONE/ACETAMINOPHEN 5/325MG TABLET PO PRN (04:33)
[2018-10-29 06:33] LABS: HEMATOCRIT. 28.4 % (42.0-52.0); HEMOGLOBIN. 9.3 g/dL (14.0-18.0); MEAN CORPUSCULAR HEMOGLOBIN 29.9 pg (28.0-32.0); MEAN CORPUSCULAR VOLUME 91.3 fL (80.0-94.0); MEAN PLATELET VOLUME 10.1 fl (7.4-10.4); PLATELET 180 x1000/uL (130-400); RED BLOOD CELL COUNT 3.11 mill/uL (4.7-6.1)
[2018-10-29 06:36] LABS: CHLORIDE 100 mEq/L (98-107)
[2018-10-29 06:41] LABS: INR 1.1; PROTHROMBIN TIME 10.8 sec (9.6-11.0)
[2018-10-29 07:48] LABS: PLATELET ESTIMATE NORMAL
[2018-10-29] MEDS ORDERED: BLOOD SUGAR DIAGNOSTIC STRIP TEST SCH (07:50)
[2018-10-29] MEDS: ENOXAPARIN 40MG/0.4ML SYR SUBCUT SCH (08:19)
[2018-10-29] MEDS: INSULIN LISPRO 100 UNITS/ML SUBCUT SCH ×5 (08:21→21:00)
[2018-10-29] MEDS: DOCUSATE SODIUM SUGAR FREE 100MG/10ML UDC NG SCH (08:22)
[2018-10-29] MEDS: BACITRACIN 15GM TUBE TOP SCH ×2 (08:24→17:07)
[2018-10-29] MEDS: GUAIFENESIN 600MG ER TABLET PO SCH ×2 (08:27→21:05)
[2018-10-29] MEDS: ASPIRIN 81MG TABLET PO SCH (08:27)
[2018-10-29] MEDS: FAMOTIDINE 20MG TABLET PO SCH ×2 (08:27→21:05)
[2018-10-29] MEDS: ALLOPURINOL 100 MG TABLET PO SCH (08:27)
[2018-10-29] MEDS ORDERED: APIXABAN 2.5 MG TABLET PO SCH (09:45)
[2018-10-29] MEDS ORDERED: AMIODARONE HCL 200 MG TABLET PO SCH (09:45)
[2018-10-29] MEDS: DOCUSATE SODIUM 250MG CAPSULE PO SCH ×2 (10:09→17:05)
[2018-10-29] MEDS: AMIODARONE HCL 900 MG in DEXT 5% WATER 482 ML IV SCH ×3 (10:45→23:33)
[2018-10-29] MEDS ORDERED: POTASSIUM PHOS,M-BASIC-D-BASIC 30 MMOL in DEXT 5% WATER 500 ML IV SCH (11:00)
[2018-10-29] MEDS: TAMSULOSIN HCL 0.4MG SR CAPSULE PO SCH (16:59)
[2018-10-29] MEDS: APIXABAN 5 MG TABLET PO SCH (17:06)
[2018-10-29] MEDS: FUROSEMIDE 40MG TABLET PO SCH (17:17)
[2018-10-29] MEDS: ONDANSETRON HCL 4MG/2ML INJ IV PRN (19:02)
[2018-10-29] MEDS ORDERED: TOTAL PARENTERAL NUTRITION 1,000 ML IV SCH (21:00)
[2018-10-29] MEDS: CARVEDILOL 3.125 MG TABLET PO SCH (21:00)
[2018-10-29] MEDS: ATORVASTATIN CALCIUM 40MG TABLET PO SCH (21:05)
[2018-10-30] VITALS (29 sets, daily range): BP systolic 88–128; BP diastolic 31–73
[2018-10-30] MEDS: OXYCODONE HCL/ACETAMINOPHEN 5/325MG TABLET PO PRN (03:20)
[2018-10-30] MEDS: IPRATROPIUM/ALBUTEROL 0.5-3(2.5)MG/3ML NEB HHN SCH ×4 (04:19→22:18)
[2018-10-30 05:19] LABS: HEMATOCRIT. 28.6 % (42.0-52.0); HEMOGLOBIN. 9.4 g/dL (14.0-18.0); MEAN CORPUSCULAR HEMOGLOBIN 29.7 pg (28.0-32.0); MEAN CORPUSCULAR VOLUME 90.2 fL (80.0-94.0); MEAN PLATELET VOLUME 9.8 fl (7.4-10.4); PLATELET 196 x1000/uL (130-400); RED BLOOD CELL COUNT 3.17 mill/uL (4.7-6.1); RED CELL DISTRIBUTION WIDTH 15.3 % (11.6-14.6)
[2018-10-30 05:25] LABS: CHLORIDE 97 mEq/L (98-107)
[2018-10-30 05:33] LABS: PHOSPHORUS 2.9 mg/dL (2.5-4.9)
[2018-10-30] MEDS: ONDANSETRON HCL 4MG/2ML INJ IV PRN ×3 (07:22→17:08)
[2018-10-30] MEDS: PIPERACILLIN/TAZ 3.375G PREMIX 50 ML IV SCH ×3 (07:22→17:27)
[2018-10-30] MEDS: METOCLOPRAMIDE HCL 10MG/2ML VIAL IV SCH ×3 (07:27→17:27)
[2018-10-30 07:42] LABS: PLATELET ESTIMATE NORMAL
[2018-10-30] MEDS: INSULIN LISPRO 100 UNITS/ML SUBCUT SCH ×4 (07:59→21:00)
[2018-10-30] MEDS: BLOOD SUGAR DIAGNOSTIC STRIP TEST SCH ×4 (07:59→21:00)
[2018-10-30] MEDS: FAMOTIDINE 20MG TABLET PO SCH ×2 (08:14→22:38)
[2018-10-30] MEDS: AMIODARONE HCL 200 MG TABLET PO SCH ×2 (08:56→22:38)
[2018-10-30] MEDS ORDERED: AMIODARONE HCL 200 MG TABLET PO SCH (09:00)
[2018-10-30] MEDS: DOCUSATE SODIUM 250MG CAPSULE PO SCH ×2 (09:00→17:00)
[2018-10-30] MEDS ORDERED: POTASSIUM CHLORIDE INJ 30 MEQ in DEXT 5% WATER 250 ML IV ONE (09:30)
[2018-10-30] MEDS: ASPIRIN 81MG TABLET PO SCH (09:40)
[2018-10-30] MEDS: ALLOPURINOL 100 MG TABLET PO SCH (09:41)
[2018-10-30] MEDS: SIMETHICONE 80MG TABLET CHEW PO SCH ×3 (09:41→17:10)
[2018-10-30] MEDS: TAMSULOSIN HCL 0.4MG SR CAPSULE PO SCH (09:41)
[2018-10-30] MEDS: CARVEDILOL 3.125 MG TABLET PO SCH ×2 (09:42→21:00)
[2018-10-30] MEDS: FUROSEMIDE 40MG TABLET PO SCH (09:42)
[2018-10-30] MEDS: APIXABAN 5 MG TABLET PO SCH ×2 (09:42→17:28)
[2018-10-30] MEDS: GUAIFENESIN 600MG ER TABLET PO SCH ×2 (09:43→22:37)
[2018-10-30] MEDS: BACITRACIN 15GM TUBE TOP SCH ×2 (09:43→17:00)
[2018-10-30] MEDS: KCL 10MEQ/50ML PREMIX 150 ML IV PRN ×3 (09:51→12:34)
[2018-10-30] MEDS ORDERED: ALBUMIN HUMAN 12.5G/250ML (5%) IV SCH (11:30)
[2018-10-30] MEDS: ATORVASTATIN CALCIUM 40MG TABLET PO SCH (22:37)
[2018-10-31] VITALS (16 sets, daily range): BP systolic 89–142; BP diastolic 32–87
[2018-10-31] MEDS: METOCLOPRAMIDE HCL 10MG/2ML VIAL IV SCH ×4 (00:29→21:24)
[2018-10-31] MEDS: SIMETHICONE 80MG TABLET CHEW PO SCH ×4 (00:29→17:40)
[2018-10-31] MEDS: PIPERACILLIN/TAZ 3.375G PREMIX 50 ML IV SCH ×4 (00:29→17:40)
[2018-10-31] MEDS: IPRATROPIUM/ALBUTEROL 0.5-3(2.5)MG/3ML NEB HHN SCH ×4 (02:12→21:05)
[2018-10-31] MEDS: OXYCODONE HCL/ACETAMINOPHEN 5/325MG TABLET PO PRN (05:27)
[2018-10-31 06:36] LABS: CHLORIDE 99 mEq/L (98-107)
[2018-10-31 06:39] LABS: HEMATOCRIT. 28.7 % (42.0-52.0); HEMOGLOBIN. 9.5 g/dL (14.0-18.0); MEAN CORPUSCULAR VOLUME 90.7 fL (80.0-94.0); MEAN PLATELET VOLUME 9.6 fl (7.4-10.4); PLATELET 224 x1000/uL (130-400); RED BLOOD CELL COUNT 3.17 mill/uL (4.7-6.1)
[2018-10-31 06:42] LABS: PHOSPHORUS 1.7 mg/dL (2.5-4.9)
[2018-10-31] MEDS: BLOOD SUGAR DIAGNOSTIC STRIP TEST SCH ×4 (06:50→20:44)
[2018-10-31] MEDS: INSULIN LISPRO 100 UNITS/ML SUBCUT SCH ×4 (07:20→20:44)
[2018-10-31] MEDS: ALLOPURINOL 100 MG TABLET PO SCH (08:31)
[2018-10-31] MEDS: AMIODARONE HCL 200 MG TABLET PO SCH ×2 (08:32→20:46)
[2018-10-31] MEDS: DOCUSATE SODIUM 250MG CAPSULE PO SCH ×2 (08:32→17:00)
[2018-10-31] MEDS: FAMOTIDINE 20MG TABLET PO SCH (08:32)
[2018-10-31] MEDS: TAMSULOSIN HCL 0.4MG SR CAPSULE PO SCH ×2 (08:32→20:45)
[2018-10-31] MEDS: APIXABAN 5 MG TABLET PO SCH ×2 (08:33→17:40)
[2018-10-31] MEDS: FUROSEMIDE 40MG TABLET PO SCH (08:33)
[2018-10-31] MEDS: CARVEDILOL 3.125 MG TABLET PO SCH ×2 (08:33→20:44)
[2018-10-31] MEDS: GUAIFENESIN 600MG ER TABLET PO SCH ×2 (08:33→20:45)
[2018-10-31] MEDS: ASPIRIN 81MG TABLET PO SCH (08:33)
[2018-10-31] MEDS: BACITRACIN 15GM TUBE TOP SCH ×2 (09:00→17:41)
[2018-10-31] MEDS ORDERED: POTASSIUM PHOS,M-BASIC-D-BASIC 30 MMOL in SODIUM CHLORIDE 0.9% 500 ML IV SCH (10:30)
[2018-10-31 14:15] LABS: PLATELET ESTIMATE NORMAL
[2018-10-31 14:39] LABS: BG BASE EXCESS 0.9 mmol/L (-2.0-2.0); BG CARBOXYHEMOGLOBIN 0.6 % (0.5-1.5); BG DEOXYHEMOGLOBIN 3.4 % (0.0-5.0); BG FRACTION INSPIRED OXYGEN 21; BG HCO3 ACT 23.8 mmol/L (22.0-26.0); BG METHEMOGLOBIN 0.3 % (0.0-1.5); BG OXYGEN SATURATION 96.6 % (92.0-98.5); BG OXYHEMOGLOBIN 95.7 % (94.0-97.0); BG PCO2 31.6 mmHg (35.0-45.0); BG PH 7.494 (7.350-7.450); BG PO2 86.3 mmHg (75.0-100.0); BG SAMPLE SITE RIGHT RADIAL; BG TOTAL HEMOGLOBIN 10.1 g/dL (12.0-18.0); BG VENT MODE ROOM AIR
[2018-10-31] MEDS: ATORVASTATIN CALCIUM 40MG TABLET PO SCH (20:45)
[2018-10-31] MEDS ORDERED: FAT EMULSIONS 500 ML IV SCH (21:00)
[2018-10-31] MEDS: TRAMADOL 50MG TABLET PO PRN (23:35)
[2018-11-01] VITALS (12 sets, daily range): BP systolic 101–131; BP diastolic 54–77
[2018-11-01] MEDS: PIPERACILLIN/TAZ 3.375G PREMIX 50 ML IV SCH ×3 (00:04→12:00)
[2018-11-01] MEDS: SIMETHICONE 80MG TABLET CHEW PO SCH ×4 (00:04→19:56)
[2018-11-01] MEDS: IPRATROPIUM/ALBUTEROL 0.5-3(2.5)MG/3ML NEB HHN SCH ×4 (01:51→21:21)
[2018-11-01] MEDS: METOCLOPRAMIDE HCL 10MG/2ML VIAL IV SCH ×3 (05:49→22:26)
[2018-11-01] MEDS: BLOOD SUGAR DIAGNOSTIC STRIP TEST SCH ×4 (06:37→21:32)
[2018-11-01] MEDS: TRAMADOL 50MG TABLET PO PRN (06:48)
[2018-11-01] MEDS: INSULIN LISPRO 100 UNITS/ML SUBCUT SCH ×4 (07:20→21:00)
[2018-11-01 07:39] LABS: HEMATOCRIT. 29.6 % (42.0-52.0); HEMOGLOBIN. 9.8 g/dL (14.0-18.0); MEAN CORPUSCULAR HEMOGLOBIN 30.2 pg (28.0-32.0); MEAN CORPUSCULAR VOLUME 91.3 fL (80.0-94.0); MEAN PLATELET VOLUME 9.7 fl (7.4-10.4); PLATELET 205 x1000/uL (130-400); RED BLOOD CELL COUNT 3.24 mill/uL (4.7-6.1); RED CELL DISTRIBUTION WIDTH 15.3 % (11.6-14.6)
[2018-11-01] MEDS: ALLOPURINOL 100 MG TABLET PO SCH (09:10)
[2018-11-01] MEDS: AMIODARONE HCL 200 MG TABLET PO SCH ×2 (09:10→21:30)
[2018-11-01] MEDS: FAMOTIDINE 20MG TABLET PO SCH (09:10)
[2018-11-01] MEDS: ASPIRIN 81MG TABLET PO SCH (09:10)
[2018-11-01] MEDS: DOCUSATE SODIUM 250MG CAPSULE PO SCH ×2 (09:10→17:25)
[2018-11-01] MEDS: APIXABAN 5 MG TABLET PO SCH ×2 (09:10→17:25)
[2018-11-01] MEDS: CARVEDILOL 3.125 MG TABLET PO SCH ×2 (09:11→21:00)
[2018-11-01] MEDS: GUAIFENESIN 600MG ER TABLET PO SCH ×2 (09:11→21:30)
[2018-11-01] MEDS: BACITRACIN 15GM TUBE TOP SCH ×2 (09:25→17:25)
[2018-11-01 10:40] LABS: CHLORIDE 101 mEq/L (98-107)
[2018-11-01 10:55] LABS: PHOSPHORUS 3.2 mg/dL (2.5-4.9)
[2018-11-01] MEDS ORDERED: POTASSIUM CHLORIDE INJ 40 MEQ in DEXT 5% WATER 250 ML IV NR (13:00)
[2018-11-01 13:05] LABS: PLATELET ESTIMATE NORMAL
[2018-11-01] MEDS ORDERED: PIPERACILLIN/TAZOBACTAM 3.375 G in DEXT 5% WATER 100 ML IV NR (18:00)
[2018-11-01] MEDS: TAMSULOSIN HCL 0.4MG SR CAPSULE PO SCH (21:30)
[2018-11-01] MEDS: ATORVASTATIN CALCIUM 40MG TABLET PO SCH (21:30)
[2018-11-02] VITALS (10 sets, daily range): BP systolic 100–138; BP diastolic 38–98
[2018-11-02] MEDS: SIMETHICONE 80MG TABLET CHEW PO SCH ×4 (00:03→17:48)
[2018-11-02] MEDS: TRAMADOL 50MG TABLET PO PRN ×2 (00:04→05:56)
[2018-11-02] MEDS: IPRATROPIUM/ALBUTEROL 0.5-3(2.5)MG/3ML NEB HHN SCH ×3 (01:07→13:39)
[2018-11-02] MEDS: METOCLOPRAMIDE HCL 10MG/2ML VIAL IV SCH ×2 (05:55→15:32)
[2018-11-02 06:51] LABS: HEMATOCRIT. 27.8 % (42.0-52.0); HEMOGLOBIN. 9.4 g/dL (14.0-18.0); MEAN CORPUSCULAR HEMOGLOBIN 30.9 pg (28.0-32.0); MEAN CORPUSCULAR VOLUME 91.6 fL (80.0-94.0); MEAN PLATELET VOLUME 9.3 fl (7.4-10.4); PLATELET 229 x1000/uL (130-400); RED BLOOD CELL COUNT 3.03 mill/uL (4.7-6.1); RED CELL DISTRIBUTION WIDTH 15.9 % (11.6-14.6)
[2018-11-02] MEDS: BLOOD SUGAR DIAGNOSTIC STRIP TEST SCH ×3 (07:05→17:31)
[2018-11-02 07:20] LABS: CHLORIDE 100 mEq/L (98-107)
[2018-11-02] MEDS: INSULIN LISPRO 100 UNITS/ML SUBCUT SCH ×3 (07:20→17:20)
[2018-11-02 07:25] LABS: PHOSPHORUS 2.3 mg/dL (2.5-4.9)
[2018-11-02] MEDS: FAMOTIDINE 20MG TABLET PO SCH (08:29)
[2018-11-02] MEDS: ASPIRIN 81MG TABLET PO SCH (08:29)
[2018-11-02] MEDS: DOCUSATE SODIUM 250MG CAPSULE PO SCH ×2 (08:29→17:00)
[2018-11-02] MEDS: AMIODARONE HCL 200 MG TABLET PO SCH (08:29)
[2018-11-02] MEDS: CARVEDILOL 3.125 MG TABLET PO SCH (08:30)
[2018-11-02] MEDS: APIXABAN 5 MG TABLET PO SCH ×2 (08:30→17:44)
[2018-11-02] MEDS: ALLOPURINOL 100 MG TABLET PO SCH (08:30)
[2018-11-02] MEDS: GUAIFENESIN 600MG ER TABLET PO SCH (08:30)
[2018-11-02] MEDS: BACITRACIN 15GM TUBE TOP SCH ×2 (08:32→17:44)
[2018-11-02 09:47] LABS: PLATELET ESTIMATE NORMAL
[2018-11-02] MEDS ORDERED: POTASSIUM PHOS,M-BASIC-D-BASIC 30 MMOL in DEXT 5% WATER 500 ML IV NR (11:00)
[2018-11-02] MEDS ORDERED: LACTULOSE 20G/30ML UDC PO NR (11:15)
== END 2018-11-02 20:25 | DRG 233 ==
LOC: ER 00:11 → 5EST 02:02 → EDBEDREQSVC 02:04 → EDBEDREQ 02:04 → EDBEDREQTM 02:04 → ENRESERV 02:17 → 8WST 17:42 → 3WST 10-17 14:47 → CVICU 10-20 09:07 → 3WST 10-30 18:30
PROVIDERS: ADMIT Internal Medicine; ATTEND Internal Medicine
PROC: 4A023N7 Measurement of Cardiac Sampling and Pressure, Left Heart, Percutaneous Approach (ICD-10-PCS; principal; 2018-10-17)
PROC: B2111ZZ Fluoroscopy of Multiple Coronary Arteries using Low Osmolar Contrast (ICD-10-PCS; 2018-10-17)
PROC: 021209W Bypass Coronary Artery, Three Arteries from Aorta with Autologous Venous Tissue, Open Approach (ICD-10-PCS; 2018-10-20)
PROC: 06BQ0ZZ Excision of Left Saphenous Vein, Open Approach (ICD-10-PCS; 2018-10-20)
PROC: 06BP0ZZ Excision of Right Saphenous Vein, Open Approach (ICD-10-PCS; 2018-10-20)
PROC: 02100Z9 Bypass Coronary Artery, One Artery from Left Internal Mammary, Open Approach (ICD-10-PCS; 2018-10-20)
PROC: 30233N1 Transfusion of Nonautologous Red Blood Cells into Peripheral Vein, Percutaneous Approach (ICD-10-PCS; 2018-10-20)
PROC: 30233K1 Transfusion of Nonautologous Frozen Plasma into Peripheral Vein, Percutaneous Approach (ICD-10-PCS; 2018-10-20)
PROC: 0W9B30Z Drainage of Left Pleural Cavity with Drainage Device, Percutaneous Approach (ICD-10-PCS; 2018-10-20)
PROC: 5A1221Z Performance of Cardiac Output, Continuous (ICD-10-PCS; 2018-10-20)
PROC: B24BZZ4 Ultrasonography of Heart with Aorta, Transesophageal (ICD-10-PCS; 2018-10-20)
PROC: 03HY32Z Insertion of Monitoring Device into Upper Artery, Percutaneous Approach (ICD-10-PCS; 2018-10-20)
PROC: 02HV33Z Insertion of Infusion Device into Superior Vena Cava, Percutaneous Approach (ICD-10-PCS; 2018-10-23)
PROC: B548ZZA Ultrasonography of Superior Vena Cava, Guidance (ICD-10-PCS; 2018-10-23)
DX: I21.4 Non-ST elevation (NSTEMI) myocardial infarction (principal); E43 Unspecified severe protein-calorie malnutrition; I50.43 Acute on chronic combined systolic (congestive) and diastolic (congestive) heart failure; J69.0 Pneumonitis due to inhalation of food and vomit; J96.00 Acute respiratory failure, unspecified whether with hypoxia or hypercapnia; J44.1 Chronic obstructive pulmonary disease with (acute) exacerbation; N17.9 Acute kidney failure, unspecified; D68.59 Other primary thrombophilia; E87.4 Mixed disorder of acid-base balance; G93.40 Encephalopathy, unspecified; I13.0 Hypertensive heart and chronic kidney disease with heart failure and stage 1 through stage 4 chronic kidney disease, or unspecified chronic kidney disease; I48.1 Persistent atrial fibrillation; I48.92 Unspecified atrial flutter; K56.7 Ileus, unspecified; E66.2 Morbid (severe) obesity with alveolar hypoventilation; D68.9 Coagulation defect, unspecified; I25.10 Atherosclerotic heart disease of native coronary artery without angina pectoris; I48.0 Paroxysmal atrial fibrillation; E11.22 Type 2 diabetes mellitus with diabetic chronic kidney disease; D72.829 Elevated white blood cell count, unspecified; R80.9 Proteinuria, unspecified; E83.51 Hypocalcemia; I25.5 Ischemic cardiomyopathy; N18.3 Chronic kidney disease, stage 3 (moderate); D69.6 Thrombocytopenia, unspecified; E78.00 Pure hypercholesterolemia, unspecified; E78.5 Hyperlipidemia, unspecified; E86.0 Dehydration; E87.6 Hypokalemia; F41.9 Anxiety disorder, unspecified; I08.1 Rheumatic disorders of both mitral and tricuspid valves; I27.20 Pulmonary hypertension, unspecified; M10.9 Gout, unspecified; N28.1 Cyst of kidney, acquired; Z79.01 Long term (current) use of anticoagulants; Z79.84 Long term (current) use of oral hypoglycemic drugs; I25.2 Old myocardial infarction; Z68.38 Body mass index [BMI] 38.0-38.9, adult
CPT/HCPCS: 36415; 36600; 71045; 74018; 74176; 74250; 76700; 76705; 76937; 78452; 80048; 80061; 80076; 80305; 82140; 82150; 82330; 82375; 82550; 82553; 82570; 82805; 82962; 83036; 83735; 83880; 84100; 84132; 84134; 84156; 84300; 84443; 84484; 84550; 85014; 85018; 85027; 85347; 85384; 85520; 86850; 86900; 86920; 86927; 87070; 92610; 93005; 93017; 93306; 93459; 93880; 93970; 94002; 94618; 94640; 97110; 97116; 97163; 97167; 97530; 97535; 99285; A4216; A6261; A9500; C1725; C1729; C1751; C1758; C1769; C1887; C1893; J0282; J0690; J0696; J1250; J1644; J1650; J1815; J1940; J1956; J2060; J2250; J2260; J2270; J2370; J2405; J2543; J2704; J2765; J2785; J2920; J2930; J3010; J3475; J3480; J3490; J7040; J7050; J7060; J7611; J7620; J7626; L3908; P9016; P9017; P9041; P9047; Q9963; Q9967; Q9968

== ENCOUNTER 2019-01-11 12:01 | Inpatient (IN) | payer OTHER, MEDICAID ==
[~2019-01-11] VITALS: Ht 167.6 cm; Wt 98.4 kg
[~2019-01-11 12:01] MED LIST changes: +AMLO10TA80 MT; +ATOR40TA70 MT; +BACL-141 MT; -BACL-141 PO; +ENAL5TAB MT; +FURO40TA5 MT; +HYDR-4133 MT; -SIMV5TAB58 PO
[2019-01-11 13:09] LABS: HEMATOCRIT. 40.9 % (42.0-52.0); MEAN CORPUSCULAR HEMOGLOBIN 27.1 pg (28.0-32.0); MEAN CORPUSCULAR VOLUME 85.6 fL (80.0-94.0); MEAN PLATELET VOLUME 9.5 fl (7.4-10.4); PLATELET 255 x1000/uL (130-400); RED BLOOD CELL COUNT 4.78 mill/uL (4.7-6.1); RED CELL DISTRIBUTION WIDTH 19.2 % (11.6-14.6)
[2019-01-11 13:18] LABS: CHLORIDE 105 mEq/L (98-107)
[2019-01-11 13:54] LABS: PLATELET ESTIMATE NORMAL
[2019-01-11] MEDS ORDERED: FUROSEMIDE 40MG/4ML VIAL IVP ONE (14:00)
[2019-01-11 16:49] VITALS: BP 129/65
[2019-01-11] MEDS ORDERED: IPRATROPIUM/ALBUTEROL 0.5-3(2.5)MG/3ML NEB HHN PRN (17:00)
[2019-01-11] MEDS ORDERED: HYDROCODONE/ACETAMINOPHEN 5/325MG TABLET PO PRN (17:00)
[2019-01-11] MEDS ORDERED: ONDANSETRON HCL 4MG/2ML INJ IV PRN (17:00)
[2019-01-11] MEDS ORDERED: MORPHINE SULFATE 2 MG/ML CPJ (NOT FOR IM USE) IV PRN (17:19)
[2019-01-11] MEDS ORDERED: INFLUENZA VIRUS VACCINE(AFLURIA) 0.5ML SYR IM ONE (18:00)
[2019-01-11] MEDS: APIXABAN 5 MG TABLET PO SCH (18:49)
[2019-01-11] MEDS: TAMSULOSIN HCL 0.4MG SR CAPSULE PO SCH (18:50)
[2019-01-11 20:00] VITALS: BP 109/81
[2019-01-11] MEDS ORDERED: AMIODARONE HCL 200 MG TABLET PO SCH (21:00)
[2019-01-11] MEDS: CARVEDILOL 3.125 MG TABLET PO SCH (21:00)
[2019-01-11] MEDS: AMIODARONE HCL 200 MG TABLET PO SCH (21:28)
[2019-01-11] MEDS: TEMAZEPAM 15MG CAPSULE PO PRN (21:28)
[2019-01-11] MEDS: ACETAMINOPHEN 325MG TABLET PO PRN (21:30)
[2019-01-12] VITALS: BP 104/74
[2019-01-12 01:18] LABS: CREATINE KINASE 38 IU/L (39-308)
[2019-01-12 04:00] VITALS: BP 131/64
[2019-01-12 07:50] LABS: CHLORIDE 107 mEq/L (98-107)
[2019-01-12 07:54] LABS: HEMOGLOBIN. 11.9 g/dL (14.0-18.0); MEAN CORPUSCULAR HEMOGLOBIN 27.2 pg (28.0-32.0); MEAN CORPUSCULAR VOLUME 86.8 fL (80.0-94.0); MEAN PLATELET VOLUME 9.8 fl (7.4-10.4); PLATELET 205 x1000/uL (130-400); RED BLOOD CELL COUNT 4.38 mill/uL (4.7-6.1); RED CELL DISTRIBUTION WIDTH 19.3 % (11.6-14.6)
[2019-01-12 08:00] VITALS: BP 123/77
[2019-01-12 08:01] LABS: LDL CHOLESTEROL 63 mg/dL (5-100)
[2019-01-12 08:02] LABS: CREATINE KINASE 33 IU/L (39-308)
[2019-01-12 08:03] LABS: HDL CHOLESTEROL 42 mg/dL (40-59); T4 FREE 2.18 ng/dL (0.76-1.46)
[2019-01-12] MEDS: FUROSEMIDE 40MG/4ML VIAL IV SCH (08:52)
[2019-01-12] MEDS: AMIODARONE HCL 200 MG TABLET PO SCH (08:52)
[2019-01-12] MEDS: ASPIRIN 81MG EC TABLET PO SCH (08:52)
[2019-01-12] MEDS: CARVEDILOL 3.125 MG TABLET PO SCH ×2 (08:53→21:05)
[2019-01-12] MEDS: TAMSULOSIN HCL 0.4MG SR CAPSULE PO SCH (08:55)
[2019-01-12] MEDS: APIXABAN 5 MG TABLET PO SCH ×2 (08:55→16:12)
[2019-01-12 11:31] LABS: PLATELET ESTIMATE NORMAL
[2019-01-12 12:00] VITALS: BP 105/72
[2019-01-12] MEDS ORDERED: FUROSEMIDE 40MG/4ML VIAL IVP NR ×2 (13:00→20:00)
[2019-01-12] MEDS ORDERED: POTASSIUM CHLORIDE 20MEQ TABLET SR PO SCH (13:45)
[2019-01-12] MEDS: METHYLPREDNISOLONE SOD SUCC 40 MG/ML VIAL IV SCH ×2 (14:36→21:06)
[2019-01-12 16:00] VITALS: BP 118/64
[2019-01-12 20:00] VITALS: BP 122/84
[2019-01-12] MEDS ORDERED: DEXTROSE 50% WATER 50ML SYRINGE IV PRN (20:30)
[2019-01-12] MEDS: BLOOD SUGAR DIAGNOSTIC STRIP TEST SCH (21:05)
[2019-01-12] MEDS: INSULIN LISPRO 100 UNITS/ML SUBCUT SCH (21:07)
[2019-01-12] MEDS: TEMAZEPAM 15MG CAPSULE PO PRN (21:08)
[2019-01-12] MEDS: IPRATROPIUM/ALBUTEROL 0.5-3(2.5)MG/3ML NEB HHN SCH (21:16)
[2019-01-13] VITALS: BP 105/77
[2019-01-13] MEDS: ACETAMINOPHEN 325MG TABLET PO PRN ×2 (00:35→23:33)
[2019-01-13] MEDS: IPRATROPIUM/ALBUTEROL 0.5-3(2.5)MG/3ML NEB HHN SCH ×4 (01:20→21:35)
[2019-01-13 04:00] VITALS: BP 114/79
[2019-01-13] MEDS: METHYLPREDNISOLONE SOD SUCC 40 MG/ML VIAL IV SCH ×3 (06:24→21:27)
[2019-01-13 07:31] LABS: HEMATOCRIT. 40.1 % (42.0-52.0); HEMOGLOBIN. 12.7 g/dL (14.0-18.0); MEAN CORPUSCULAR HEMOGLOBIN 27.3 pg (28.0-32.0); MEAN CORPUSCULAR VOLUME 86.2 fL (80.0-94.0); MEAN PLATELET VOLUME 9.7 fl (7.4-10.4); PLATELET 220 x1000/uL (130-400); RED BLOOD CELL COUNT 4.66 mill/uL (4.7-6.1); RED CELL DISTRIBUTION WIDTH 18.8 % (11.6-14.6)
[2019-01-13] MEDS: BLOOD SUGAR DIAGNOSTIC STRIP TEST SCH ×4 (07:40→21:27)
[2019-01-13 08:00] VITALS: BP 158/79
[2019-01-13] MEDS: INSULIN LISPRO 100 UNITS/ML SUBCUT SCH ×4 (08:10→21:26)
[2019-01-13] MEDS: FUROSEMIDE 40MG/4ML VIAL IV SCH (09:19)
[2019-01-13] MEDS: TAMSULOSIN HCL 0.4MG SR CAPSULE PO SCH (09:20)
[2019-01-13] MEDS: CARVEDILOL 3.125 MG TABLET PO SCH ×2 (09:20→21:27)
[2019-01-13] MEDS: ASPIRIN 81MG EC TABLET PO SCH (09:20)
[2019-01-13] MEDS: APIXABAN 5 MG TABLET PO SCH ×2 (09:20→17:35)
[2019-01-13] MEDS: AMIODARONE HCL 200 MG TABLET PO SCH (09:20)
[2019-01-13] MEDS: LOSARTAN POTASSIUM 25 MG TABLET PO SCH ×2 (09:20→21:26)
[2019-01-13 09:38] LABS: PLATELET ESTIMATE NORMAL
[2019-01-13 12:00] VITALS: BP 110/81
[2019-01-13 16:00] VITALS: BP 128/89
[2019-01-13 20:00] VITALS: BP 112/71
[2019-01-13] MEDS: TEMAZEPAM 15MG CAPSULE PO PRN (21:27)
[2019-01-14] VITALS (7 sets, daily range): BP systolic 96–134; BP diastolic 71–87
[2019-01-14] MEDS: IPRATROPIUM/ALBUTEROL 0.5-3(2.5)MG/3ML NEB HHN SCH ×4 (02:54→21:24)
[2019-01-14] MEDS: METHYLPREDNISOLONE SOD SUCC 40 MG/ML VIAL IV SCH ×3 (06:23→21:10)
[2019-01-14 07:28] LABS: HEMATOCRIT. 40.5 % (42.0-52.0); HEMOGLOBIN. 12.9 g/dL (14.0-18.0); MEAN CORPUSCULAR HEMOGLOBIN 27.3 pg (28.0-32.0); MEAN CORPUSCULAR VOLUME 85.6 fL (80.0-94.0); MEAN PLATELET VOLUME 9.7 fl (7.4-10.4); PLATELET 284 x1000/uL (130-400); RED BLOOD CELL COUNT 4.73 mill/uL (4.7-6.1); RED CELL DISTRIBUTION WIDTH 19.2 % (11.6-14.6)
[2019-01-14] MEDS: BLOOD SUGAR DIAGNOSTIC STRIP TEST SCH ×4 (07:40→21:10)
[2019-01-14] MEDS: INSULIN LISPRO 100 UNITS/ML SUBCUT SCH ×4 (08:10→21:00)
[2019-01-14] MEDS: APIXABAN 5 MG TABLET PO SCH ×2 (09:43→18:35)
[2019-01-14] MEDS: AMIODARONE HCL 200 MG TABLET PO SCH (09:43)
[2019-01-14] MEDS: CARVEDILOL 3.125 MG TABLET PO SCH ×2 (09:43→21:09)
[2019-01-14] MEDS: FUROSEMIDE 40MG/4ML VIAL IV SCH (09:43)
[2019-01-14] MEDS: LOSARTAN POTASSIUM 25 MG TABLET PO SCH ×2 (09:43→21:09)
[2019-01-14] MEDS: TAMSULOSIN HCL 0.4MG SR CAPSULE PO SCH (09:44)
[2019-01-14] MEDS: ASPIRIN 81MG EC TABLET PO SCH (09:44)
[2019-01-14] MEDS ORDERED: POTASSIUM CHLORIDE 20MEQ TABLET SR PO NR (11:15)
[2019-01-14] MEDS ORDERED: FUROSEMIDE 40MG/4ML VIAL IVP NR (11:15)
[2019-01-14 13:22] LABS: PLATELET ESTIMATE NORMAL
[2019-01-15] VITALS: BP 109/79
== END 2019-01-15 01:10 | DRG 291 ==
LOC: ER 12:01 → 7WST 14:23 → EDBEDREQTM 14:34 → ENRESERV 15:20 → CANRESERV 15:20 → ENRESERV 16:23
PROVIDERS: ADMIT Internal Medicine; ATTEND Internal Medicine
DX: I13.0 Hypertensive heart and chronic kidney disease with heart failure and stage 1 through stage 4 chronic kidney disease, or unspecified chronic kidney disease (principal); I50.23 Acute on chronic systolic (congestive) heart failure; J44.1 Chronic obstructive pulmonary disease with (acute) exacerbation; D68.59 Other primary thrombophilia; E66.2 Morbid (severe) obesity with alveolar hypoventilation; N17.9 Acute kidney failure, unspecified; D64.9 Anemia, unspecified; D72.825 Bandemia; E11.22 Type 2 diabetes mellitus with diabetic chronic kidney disease; E78.5 Hyperlipidemia, unspecified; F41.9 Anxiety disorder, unspecified; I27.20 Pulmonary hypertension, unspecified; I25.10 Atherosclerotic heart disease of native coronary artery without angina pectoris; I42.9 Cardiomyopathy, unspecified; I48.91 Unspecified atrial fibrillation; M10.9 Gout, unspecified; N18.3 Chronic kidney disease, stage 3 (moderate); E78.00 Pure hypercholesterolemia, unspecified; Z79.01 Long term (current) use of anticoagulants; Z95.1 Presence of aortocoronary bypass graft; Z99.81 Dependence on supplemental oxygen; Z79.899 Other long term (current) drug therapy; Z68.35 Body mass index [BMI] 35.0-35.9, adult
CPT/HCPCS: 36415; 71045; 76770; 80048; 80061; 82550; 82962; 83880; 84439; 84443; 84484; 90686; 93005; 93306; 94640; 97162; 99285; J1815; J1940; J2920; J7620